=== PATIENT | female | born 1950 | race African-American/Black ===

== ENCOUNTER 2016-08-25 12:19 | Inpatient (IN) ==
[2016-08-25 15:50] LABS: Basophils % 0.5 % (0.0-0.8); Eosinophils # 0.1 10*3/uL (0.0-0.87); Eosinophils % 1.4 % (0.00-10.9); Hematocrit 45.7 VOL% (35.7-47.0); Hemoglobin 15.1 GM/DL (12.0-16.0); Immature Granulocytes % 0.2 %; Immature Granulocytes Absolute 0.02 #; Lymphocytes # 2.9 10*3/uL (1.4-4.0); Lymphocytes % 34.4 % (21.3-54.2); Mean Corpuscular Hemoglobin 32 PG (27-34); Mean Corpuscular Volume 96.8 FL (87-102); Mean Platelet Volume 10.2 FL (9.6-12.0); Monocytes # 1.2 10*3/uL (0.11-0.8); Monocytes % 14.5 % (1.7-12.7); Neutrophils # 4.1 10*3/uL (1.4-7.4); Platelet Count 188 T/CUMM (130-400); Red Blood Count 4.72 MC/CUMM (3.8-5.5); Red Cell Distribution Width 14.2 % (9.3-17.3); White Blood Count 8.3 T/CUMM (4-12)
[2016-08-25 16:01] LABS: INR 1.1; PT Patient Result 12.2 SECS
[2016-08-25 16:13] LABS: Calcium 9.1 MG/DL (8.5-10.1); Magnesium 2.3 MG/DL (1.8-2.4); Osmolality,Calculated 300.1 MOS/KG (273-304); Potassium 4.3 MMOL/L (3.5-5.1)
--- NOTE | 2016-08-25 16:16 | Emergency Department Note ---
Baldemar Cooper Brittany, am scribing for, and in the presence of, Lenard Lopez M.D. 15:33. John Cooper Howard T, M.D., personally performed the services described in this documentation, ascribed by Irma Mcdermott in my presence, and it is both accurate and complete [id number] . Arrival - Arrival Chief Complaint: Non-Specific Stated Complaint: dr.denison carvajal pt to come through er,declot tissue ED Nursing Triage Note: PT SENT FOR EVALUATION OF AV FISTULA IN RIGHT ARM. PT WAS AT DIALYSIS THIS MORNING, WHEN SITE WAS ACCESSED IT WAS CLOTTED- PT UNABLE TO HAVE HD. Mode of Arrival: Ambulatory Limitations: No Limitations Source: Patient Time Seen by Provider: 08/25/16 15:17 - History of Present Illness HPI Narrative: This is a 66 y/o black female,who presents to the ED for further evaluation of clotted AV fistula to the right arm. She states this started this morning. She states she was scheduled to have the HD but when her site was accessed staff noticed it was clotted and was unable to follow through. Pt reports she has a slight WHITLEY. Pt has no other complaints/pain in the ED at this time. Pt has a PMHx of HTN, IDDM, RA, myasthenia gravis, renal failure, renal problems, dialysis MWF, and GERD. Pt has a AV fistula to the right arm, eye surgery, C- section and tubal ligation. Pt has a family medical Hx of cancer, diabetes, heart disease, and HTN. PT denies a social Hx. 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) Consistency: constant Severity: mild, moderate Allergies/Adverse Reactions: Allergies Allergy/AdvReac Type Severity Reaction Status Date / Time No Known Allergies Allergy Verified 08/25/16 12:35 Home Medications: Home Medications Medication Instructions Recorded Confirmed Type Calcium Acetate 667 mg PO TID W/MEALS 07/14/14 06/22/16 History Insulin NPH Hum/Reg Insulin Hm 15 unit SQ DAILY W/SUPPER 07/14/14 06/22/16 History [Novolin 70-30 100 Unit/ml Vial] Insulin NPH Hum/Reg Insulin Hm 30 unit SQ DAILY W/BREAKFAST 07/14/14 06/22/16 History [Novolin 70-30 100 Unit/ml Vial] Calcitriol [Rocaltrol] 0.5 mcg PO DAILY #30 capsule 07/23/14 06/22/16 Rx Calcium (Carbonate) [Oscal 500] 2,000 mg PO QID #240 tablet 07/23/14 Rx Doxercalciferol Inj [Hectorol Inj] 4 mcg IV WITH DIALYSIS PRN #0 vial 07/23/14 06/22/16 Rx Epoetin Taz [Epogen] 4,400 unit IV WITH DIALYSIS PRN #0 07/23/14 06/22/16 Rx vial Review of System - Review of System 12 point system: reviewed and no additional remarkable complaints except as stated - Review of System Musculoskeletal: Present: other (Clotted AV fistula to the right arm) Neurological: Present: headache (Slight WHITLEY) Medical,Surgical,& Family Hx - Medical History Cardio: History of: Hypertension (DIALYSIS) Neurology: No history of: Seizures HEENT: History of: Eye Problem (LASER LEFT EYE), Glaucoma (RIGHT EYE) Endocrine: History of: Diabetes Mellitus (IDDM), Endocrine Problems (ELEVATED CALCIUM) Rheumatology: History of;: Myasthenia Gravis (30 YEARS AGO NO MEDS NO DR), Rheumatoid Arthritis Renal: History of: Dialysis (M,W,F), Renal Failure, Renal Problems (AV FISTULA L AND R ARMS (FOREARMS)) Gastrointestinal: History of: GERD Musculoskeletal: History of: Musculoskeletal Problems - Surgical History Cardiac Surgeries: Sugical HX of: Vascular Access Devices (AV FISTULA L AND RIGHT ARM) HEENT Surgeries: Surgical HX of: Eye Surgery (LASER LEFT EYE) Patient denies: Thyroid Surgery Reproductive Surgeries: Surgical HX of;: Section (X1), Tubal Ligation - Family History Family History: Reports;: Family Cancer (PARENTS), Family Diabetes (MOM 3 SISTERS 2 BROTHERS), Family Heart Disease (BROTHER), Family Hypertension (2 SISTERS 1 BROTHER) Denies;: Family Psychiatric Problems, Family Stroke - Social History Smoking Status: Never smoker Frequency of Alcohol Use: None Type of Drug Use: None Exam Vital Signs: Vital Signs Temperature 96.9 F L 08/25/16 12:30 Pulse Rate 72 08/25/16 12:30 Respiratory Rate 16 08/25/16 12:30 Blood Pressure 178/93 08/25/16 12:30 O2 Sat by Pulse Oximetry 96 05/12/17 12:30 - General General appearance: alert, in no apparent distress - Head Head exam: Present: atraumatic, normocephalic, normal inspection - Eye Eye exam: Present: normal appearance, PERRL, EOMI. Absent: nystagmus, miosis, mydriasis - ENT ENT exam: Present: normal exam, normal oropharynx, mucous membranes moist, TM's normal bilaterally, normal external ear exam - Neck Neck exam: Present: normal inspection, full ROM, trachea midline. Absent: tenderness, meningismus, lymphadenopathy, thyromegaly - Chest Chest inspection: Present: normal inspection, symmetric chest wall rise. Absent : tenderness, rash, abscess - Respiratory Respiratory exam: Present: normal lung sounds bilaterally. Absent: rales, respiratory distress, rhonchi, stridor, wheezes - Cardiovascular Cardiovascular exam: Present: regular rate, normal rhythm, normal heart sounds. Absent: murmur, rubs, gallop, clicks, JVD - Abdominal Exam Abdominal exam: Present: soft, normal bowel sounds. Absent: distention, tenderness, guarding, rebound, rigidity - Rectal Exam Rectal exam: Present: deferred - Extremities Exam Extremities exam: Present: normal capillary refill, other (Graft scars to the arms bialterally these do not appear to be infected). Absent: tenderness, joint swelling, calf tenderness - Back Exam Back exam: Present: normal inspection, full ROM. Absent: tenderness, muscle spasm, rashes - Neurological Exam Neurological exam: Present: alert, oriented X3, CN II-XII intact. Absent: motor sensory deficit - Psychiatric Psychiatric exam: Present: normal affect, normal mood. Absent: depressed, agitated, anxious, flat affect, manic - Skin Skin exam: Present: warm, dry, intact, normal color. Absent: rash, cyanosis, diaphoresis, erythema, pallor, mottled Course Course Narrative: Medical decision making: History and exam is consistent with clotted AV fistula and Dr. Pino general surgeon control manager evaluated the patient will take her to the OR. Results - Labs CBC & BMP: 08/25/16 15:19 08/25/16 15:19 Lab Results: I have reviewed the patients labs Labs: INR 1.1 Disposition Clinical Impression: End stage renal disease, AV fistula thrombosis, Hypertension Case discussed with: patient Disposition: Still a Patient Condition: Stable Time of Disposition: 16:15
[2016-08-25] MEDS ORDERED: ceFAZolin 2,000 MG in PREMIX 1 EACH IV ONE (16:49)
--- NOTE | 2016-08-25 16:52 | General Surg History&Physical ---
Assessment and Plan (1) AV fistula thrombosis Status: Acute Assessment and plan: Impression: Right arm AV fistula thrombosis Plan: I do not think further operative attempts to declot would be successful without further angioplasty or possibly stenting of the axillary vein stenosis as this is most likely the cause of rethrombosis. We will plan to place hemodialysis catheters today. Admit have her dialyze over the weekend and see if we can get interventional radiology to address the stenosis on Sunday if possible. I discussed this with the patient and she agrees with the plan. We discussed the procedure habits performed and the risks. Risks of bleeding, infection, damage to surrounding structures, need further surgery were all discussed in detail and she would like to proceed. Current Visit: Yes History of Present Illness Chief complaint: Clotted dialysis access History of present illness: Ms. Stallworth is a 66 year old female with multiple previous dialysis access surgeries presents with clotted access in her right upper extremity. She was able to dialyze on Sunday but today they were unable to obtain access. She underwent previous attempted thrombectomy by Dr. 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 She has no complaints. She has no shortness of breath or chest pain. She has had no fever or any sign of infection. Home Medications Medication Instructions Recorded Confirmed Type Calcium Acetate 667 mg PO TID W/MEALS 07/14/14 06/22/16 History Insulin NPH Hum/Reg Insulin Hm 15 unit SQ DAILY W/SUPPER 07/14/14 06/22/16 History [Novolin 70-30 100 Unit/ml Vial] Insulin NPH Hum/Reg Insulin Hm 30 unit SQ DAILY W/BREAKFAST 07/14/14 06/22/16 History [Novolin 70-30 100 Unit/ml Vial] Calcitriol [Rocaltrol] 0.5 mcg PO DAILY #30 capsule 07/23/14 06/22/16 Rx Calcium (Carbonate) [Oscal 500] 2,000 mg PO QID #240 tablet 07/23/14 Rx Doxercalciferol Inj [Hectorol Inj] 4 mcg IV WITH DIALYSIS PRN #0 vial 07/23/14 06/22/16 Rx Epoetin Taz [Epogen] 4,400 unit IV WITH DIALYSIS PRN #0 07/23/14 06/22/16 Rx vial Allergies Allergy/AdvReac Type Severity Reaction Status Date / Time No Known Allergies Allergy Verified 08/25/16 12:35 Medical,Surgical,& Family Hx - Medical History Cardio: History of: Hypertension (DIALYSIS) Neurology: No history of: Seizures HEENT: History of: Eye Problem (LASER LEFT EYE), Glaucoma (RIGHT EYE) Endocrine: History of: Diabetes Mellitus (IDDM), Endocrine Problems (ELEVATED CALCIUM) Rheumatology: History of;: Myasthenia Gravis (30 YEARS AGO NO MEDS NO ), Rheumatoid Arthritis Renal: History of: Dialysis (M,W,F), Renal Failure, Renal Problems (AV FISTULA L AND R ARMS (FOREARMS)) Gastrointestinal: History of: GERD Musculoskeletal: History of: Musculoskeletal Problems - Surgical History Cardiac Surgeries: Sugical HX of: Vascular Access Devices (AV FISTULA L AND RIGHT ARM) HEENT Surgeries: Surgical HX of: Eye Surgery (LASER LEFT EYE) Patient denies: Thyroid Surgery Reproductive Surgeries: Surgical HX of;: Section (X1), Tubal Ligation - Family History Family History: Reports;: Family Cancer (PARENTS), Family Diabetes (MOM 3 SISTERS 2 BROTHERS), Family Heart Disease (BROTHER), Family Hypertension (2 SISTERS 1 BROTHER) Denies;: Family Psychiatric Problems, Family Stroke - Social History Smoking Status: Never smoker Frequency of Alcohol Use: None Type of Drug Use: None Exam - Constitutional Vitals: Period Temp Pulse Resp BP Sys/Eisenberg Pulse Ox Last 24 Hr 96.9 F 72 16 178/93 96 General appearance: no acute distress - Head Head exam: Present: normocephalic - Neck Neck exam: Present: normal inspection - Respiratory Respiratory exam: Present: clear to auscultation bilaterally - Cardiovascular Cardiovascular exam: Present: RRR - GI/Abdominal GI/Abdominal exam: Present: soft - Extremities Exam Extremities exam: Present: other (Right upper extremity AV fistula with no thrill. Multiple healed incisions in bilateral upper extremities) - Back Exam Back exam: Present: normal inspection - Neurological Exam Neurological exam: Present: alert, oriented X3 Speech: Present: normal - Skin Skin exam: Present: normal color 12 point system: reviewed and no additional remarkable complaints except as stated Results - Labs CBC & BMP: 08/25/16 15:19 08/25/16 15:19 Lab Results: I have reviewed the past 24 hour labs
[2016-08-25] MEDS ORDERED: GLUCAGON 1 MG VIAL IM PRN (16:55)
[2016-08-25] MEDS ORDERED: ONDANSETRON 4 MG/2 ML VIAL IV PRN (16:55)
[2016-08-25] MEDS ORDERED: ACETAMINOPHEN 325 MG TABLET PO PRN (16:55)
[2016-08-25] MEDS ORDERED: DEXTROSE 50% 25 GM/50 ML VIAL IV PRN (16:55)
[2016-08-25] MEDS ORDERED: METOCLOPRAMIDE 10 MG/2 ML VIAL IV STA (17:09)
[2016-08-25] MEDS ORDERED: METOCLOPRAMIDE 10 MG/2 ML VIAL ONE (17:11)
[2016-08-25] MEDS ORDERED: HEPARIN 5,000 UNIT/1 ML VIAL ONE (17:21)
[2016-08-25] MEDS ORDERED: BUPIVACAINE MPF 0.25% /EPI 30 ML VIAL ONE (17:21)
[2016-08-25] MEDS ORDERED: LIDOCAINE 1%/EPI INJ 20 ML VIAL ONE (17:21)
[2016-08-25] MEDS ORDERED: PROPOFOL 200 MG/20 ML VIAL IV ONE (18:04)
--- NOTE | 2016-08-25 18:48 | Operative Note ---
Date of procedure: 08/25/16 Pre-op diagnosis: Clotted dialysis access, end-stage renal disease Post-op diagnosis: same Procedure: Procedure performed: Placement of left internal jugular tunneled hemodialysis catheter Procedure in detail: After informed consent was obtained, patient was taken operating suite and laid supine on the operating table. After monitored anesthesia was initiated bilateral neck and chest were prepped and draped in usual sterile fashion. After procedural pause ultrasound brought over through a sterile sleeve covering ultrasound the left neck revealed a patent and compressible left internal jugular vein. Patient placed in Trendelenburg position. A left internal jugular vein was then accessed using an 18-gauge Seldinger needle under ultrasound guidance on the first attempt. There is return of nonpulsatile dark red blood. Guidewire inserted without resistance. Guidewire was seen coursing through the visualized portion of the internal jugular vein on ultrasound. Fluoroscopy demonstrated a guidewire be coursing through the appropriate position. Next a 19 cm cuffed hemodialysis catheter was tunneled from a separate incision left chest wall up to base left neck. Dilator and sheath were placed over the guidewire using Seldinger technique under fluoroscopic guidance. Dilator and guidewire were removed leaving the sheath in place. The catheter inserted through the sheath and sheath peeled away leaving the catheter tip in Spear vena cava. Catheter withdrew and flushed easily and was locked with heparinized saline. It was secured in place with 2-0 nylon. Incision closed with 2-0 nylon. Sterile dressings applied. The patient was taken recovery room in stable condition. All lap and needle counts correct at the end of the case. Anesthesia: MAC, local Surgeon / Physician: Nate Joaquin Estimated blood loss: other (Less than 10 cc) Specimens: none sent Condition: stable Disposition: PACU Results - Labs CBC & BMP: 08/25/16 15:19 08/25/16 15:19 Discharge Plan - Discharge Medications No Action Calcium Acetate 667 mg PO TID W/MEALS Insulin NPH Hum/Reg Insulin Hm [Novolin 70-30 100 Unit/ml Vial] 30 unit SQ DAILY W/BREAKFAST Insulin NPH Hum/Reg Insulin Hm [Novolin 70-30 100 Unit/ml Vial] 15 unit SQ DAILY W/SUPPER Doxercalciferol Inj [Hectorol Inj] 4 mcg IV WITH DIALYSIS PRN #0 vial PRN Reason: DIALYSIS Calcium (Carbonate) [Oscal 500] 2,000 mg PO QID #240 tablet Calcitriol [Rocaltrol] 0.5 mcg PO DAILY #30 capsule Epoetin Taz [Epogen] 4,400 unit IV WITH DIALYSIS PRN #0 vial PRN Reason: DIALYSIS - Follow Up or Referral - Forms/Instructions
--- NOTE | 2016-08-25 18:54 | Anesthesia Post-Op ---
Anesthesia Post OP - Post Ansesthetic Evaluation Patient seen in post op: Yes Resp: within normal limits CV: within normal limits Mental: within normal limits Temp: within normal limits [id number]: within normal limits Nausea and Vomiting: within normal limits Pain: within normal limits
[2016-08-25] MEDS ORDERED: MIDAZOLAM 2 MG/2 ML VIAL ONE (18:57)
--- NOTE | 2016-08-25 19:19 | XRay Report ---
XR chest 1V portable Indication: Catheter placement Comparison: 17 January 2011 Findings: The heart and mediastinum are stable in size and configuration. Left internal jugular catheter has been placed with tip overlying superior vena cava. The pulmonary vascularity is prominent. No lung infiltrates, effusions, pneumothorax or other abnormality is demonstrated. Impression: Right internal jugular catheter placement with tip overlying superior vena cava. PROCEDURE INTERPRETED AT [facility] DEPARTMENT OF RADIOLOGY Final Report Signed by: Dr. Keith Brock
--- NOTE | 2016-08-25 20:16 | Hospitalist Consult Note ---
Assessment and Plan (1) AV fistula thrombosis Status: Acute Assessment and plan: tunnel cath placed Current Visit: Yes (2) End stage renal disease Status: Acute Assessment and plan: consult Dr. Daugherty for dialysis Current Visit: Yes (3) Diabetes mellitus Status: Acute Assessment and plan: restarted insulin, ISC Current Visit: No (4) Secondary hyperparathyroidism Status: Acute Assessment and plan: cont hectoral Current Visit: No History of Present Illness - Data of Consult Consult date: 08/25/16 Requesting Physician: Nate Joaquin - Consult Narrative Reason for consult: clot in graft History of present illness: Ms. Stallworth is a 66 year old female end-stage renal disease and insulin- dependent diabetes who was at dialysis today but was unable to finish her dialysis due to a clotted graft. She has had multiple clots in her graft before. Dr. Joaquin admitted her and put in tunnel cath. CC: Nate Joaquin MD - Home Medications and Allergies Home Medications: Home Medications Medication Instructions Recorded Confirmed Type Calcium Acetate 667 mg PO TID W/MEALS 07/14/14 06/22/16 History Insulin NPH Hum/Reg Insulin Hm 15 unit SQ DAILY W/SUPPER 07/14/14 06/22/16 History [Novolin 70-30 100 Unit/ml Vial] Insulin NPH Hum/Reg Insulin Hm 30 unit SQ DAILY W/BREAKFAST 07/14/14 06/22/16 History [Novolin 70-30 100 Unit/ml Vial] Calcitriol [Rocaltrol] 0.5 mcg PO DAILY #30 capsule 07/23/14 06/22/16 Rx Calcium (Carbonate) [Oscal 500] 2,000 mg PO QID #240 tablet 07/23/14 Rx Doxercalciferol Inj [Hectorol Inj] 4 mcg IV WITH DIALYSIS PRN #0 vial 07/23/14 06/22/16 Rx Epoetin Taz [Epogen] 4,400 unit IV WITH DIALYSIS PRN #0 07/23/14 06/22/16 Rx vial Allergies/Adverse Reactions: Allergies Allergy/AdvReac Type Severity Reaction Status Date / Time No Known Allergies Allergy Verified 08/25/16 12:35 Medical,Surgical,& Family Hx - Medical History Cardio: History of: Hypertension (DIALYSIS) Neurology: No history of: Seizures HEENT: History of: Eye Problem (LASER LEFT EYE), Glaucoma (RIGHT EYE) Endocrine: History of: Diabetes Mellitus (IDDM), Endocrine Problems (ELEVATED CALCIUM) Rheumatology: History of;: Myasthenia Gravis (30 YEARS AGO NO MEDS NO ), Rheumatoid Arthritis Renal: History of: Dialysis (M,W,F), Renal Failure, Renal Problems (AV FISTULA L AND R ARMS (FOREARMS)) Gastrointestinal: History of: GERD Musculoskeletal: History of: Musculoskeletal Problems - Surgical History Cardiac Surgeries: Sugical HX of: Vascular Access Devices (AV FISTULA L AND RIGHT ARM) HEENT Surgeries: Surgical HX of: Eye Surgery (LASER LEFT EYE) Patient denies: Thyroid Surgery Reproductive Surgeries: Surgical HX of;: Section (X1), Tubal Ligation - Family History Family History: Reports;: Family Cancer (PARENTS), Family Diabetes (MOM 3 SISTERS 2 BROTHERS), Family Heart Disease (BROTHER), Family Hypertension (2 SISTERS 1 BROTHER) Denies;: Family Psychiatric Problems, Family Stroke - Social History Smoking Status: Never smoker Frequency of Alcohol Use: None Type of Drug Use: None Marital Status: Single Lives With:: Alone Functional capacity: independent ambulation - Constitutional Constitutional: Absent: fever(s), headache(s) - EENT Eyes: Absent: blurry vision, diplopia Ears: Absent: decreased hearing, ear discharge Nose, mouth and throat: Absent: headache(s), sore throat - Cardiovascular Cardiovascular: Absent: chest pain at rest, dyspnea - Respiratory Respiratory: Absent: cough, dyspnea - Gastrointestinal Gastrointestinal: Present: constipation, diarrhea. Absent: nausea, vomiting - Genitourinary Genitourinary: Absent: difficulty urinating, dysuria - Neurological Neurological: Absent: headache(s), syncope - Psychiatric Psychiatric: Absent: anxiety, depression - Endocrine Endocrine: Absent: cold intolerance, fatigue - Hematologic/Lymphatic Hematologic/Lymphatic: Absent: easy bleeding, easy bruising Exam - Constitutional Vitals: Period Temp Pulse Resp BP Sys/Eisenberg Pulse Ox Last 24 Hr 97.3 F-97.6 F 71-78 16-25 138-168/67-79 94-100 General appearance: normal weight, no acute distress - Head Head exam: Present: normal inspection, normocephalic - Eye Eye exam: Present: EOMI. Absent: scleral icterus Pupils: Present: NGUYỄN, normal accommodation - ENT ENT exam: Present: normal exam, normal external ear exam - Neck Neck exam: Absent: lymphadenopathy, thyromegaly - Respiratory Respiratory exam: Present: clear to auscultation bilaterally. Absent: rhonchi, wheezes - Cardiovascular Cardiovascular exam: Present: regular rate and rhythm. Absent: systolic murmur - GI/Abdominal GI/Abdominal exam: Present: normal bowel sounds, soft. Absent: tenderness - Extremities Exam Extremities exam: Present: normal inspection, normal capillary refill - Neurological Exam Neurological exam: Present: alert, oriented X3, reflexes normal. Absent: motor sensory deficit - Psychiatric Psychiatric exam: Present: normal affect, normal mood - Skin Skin exam: Present: normal color, warm Results - Labs CBC & BMP: 08/25/16 15:19 08/25/16 15:19 Lab Results: I have reviewed the past 24 hour labs Quality Measures - VTE Contraindication to Pharmacological VTE Prophylaxis: Clinical assessment deems Pt at low risk, no prophalaxis needed
[2016-08-25] MEDS ORDERED: DOXERCALCIFEROL 4 MCG/2 ML VIAL IV PRN (20:18)
[2016-08-25] MEDS ORDERED: EPOETIN ALFA 2,000 UNIT/1 ML VIAL IV PRN (20:18)
[2016-08-25] MEDS: INSULIN LISPRO 100 UNIT/ML SUBCUT SCH (22:43)
[2016-08-26] MEDS: INSULIN LISPRO 100 UNIT/ML SUBCUT SCH ×4 (08:24→20:30)
--- NOTE | 2016-08-26 08:30 | Hospitalist Progress Note ---
Hospitalist: Subjective Interval history: Pt had Left IJ placed yesterday and was told she has plans for HD today. No fever. No cp or SOB. No nausea or vomiting. Exam - Constitutional Vitals: Period Temp Pulse Resp BP Sys/Eisenberg Pulse Ox Last 24 Hr 97.3 F-98.1 F 64-78 16-25 103-168/51-79 94-100 Exam: A and O x 3, chronically ill appearing RRR no M CTAB nonlabored Soft, NT, ND, +BS Warm no c/c/e Results - Labs CBC & BMP: 08/25/16 15:19 08/25/16 15:19 - Impressions (1) AV fistula thrombosis Status: Acute Assessment and plan: tunnel cath placed Current Visit: Yes (2) End stage renal disease Status: Acute Assessment and plan: Renal for HD Current Visit: Yes (3) Diabetes mellitus Status: Acute Assessment and plan: Cont insulin, and insulin sliding scale/ accuchecks Current Visit: No (4) Secondary hyperparathyroidism Status: Acute Assessment and plan: cont hectoral Current Visit: No Possible dc later today after HD if ok with all consultants. If not, I will be away several days and one of my associates will follow in my absence. Quality Measures - VTE Contraindication to Pharmacological VTE Prophylaxis: Clinical assessment deems Pt at low risk, no prophalaxis needed
[2016-08-26] MEDS: CALCIUM ACETATE 667 MG CAPSULE PO SCH ×3 (09:14→17:22)
[2016-08-26] MEDS: CALCITRIOL 0.25 MCG CAPSULE PO SCH (09:14)
[2016-08-26] MEDS: PANTOPRAZOLE 40 MG TABLET PO SCH (09:14)
[2016-08-26] MEDS: INSULIN NPH/REGULAR 70/30 100 UNIT/ML SUBCUT SCH ×2 (09:17→16:30)
--- NOTE | 2016-08-26 15:14 | Event Note ---
Status post placement of right IJ catheter. She is admitted for hemodialysis. Nephrology consult. She has clotted access in the right arm. We will see if interventional radiology has any options available on Sunday for this patient.
--- NOTE | 2016-08-26 17:25 | Nephrology Consult Note ---
History of Present Illness Chief complaint: End-stage renal disease History of present illness: Ms. Stallworth is a 66 year old female history of end-stage renal disease due to hypertension and diabetes. She currently dialyzes at the [facility] dialysis unit she presented with a clotted access. At this time she has a new tunnel catheter that was placed on yesterday. Nephrology is been consulted for renal issues. No shortness of breath or chest pain no fevers or chills. Home Medications Medication Instructions Recorded Confirmed Type Calcium Acetate 667 mg PO TID W/MEALS 07/14/14 08/25/16 History Insulin NPH Hum/Reg Insulin Hm 15 unit SQ DAILY W/SUPPER 07/14/14 08/25/16 History [Novolin 70-30 100 Unit/ml Vial] Insulin NPH Hum/Reg Insulin Hm 30 unit SQ DAILY W/BREAKFAST 07/14/14 08/25/16 History [Novolin 70-30 100 Unit/ml Vial] Calcitriol [Rocaltrol] 0.5 mcg PO DAILY #30 capsule 07/23/14 08/25/16 Rx Calcium (Carbonate) [Oscal 500] 2,000 mg PO QID #240 tablet 07/23/14 08/25/16 Rx Doxercalciferol Inj [Hectorol Inj] 4 mcg IV WITH DIALYSIS PRN #0 vial 07/23/14 08/25/16 Rx Epoetin Taz [Epogen] 4,400 unit IV WITH DIALYSIS PRN #0 07/23/14 08/25/16 Rx vial Allergies Allergy/AdvReac Type Severity Reaction Status Date / Time No Known Allergies Allergy Verified 08/25/16 12:35 Medical,Surgical,& Family Hx - Medical History Cardio: History of: Hypertension (DIALYSIS) Neurology: No history of: Seizures HEENT: History of: Eye Problem (LASER LEFT EYE), Glaucoma (RIGHT EYE) Endocrine: History of: Diabetes Mellitus (IDDM), Endocrine Problems (ELEVATED CALCIUM) Rheumatology: History of;: Myasthenia Gravis (30 YEARS AGO NO MEDS NO ), Rheumatoid Arthritis Renal: History of: Dialysis (M,W,F), Renal Failure, Renal Problems (AV FISTULA L AND R ARMS (FOREARMS)) Gastrointestinal: History of: GERD Musculoskeletal: History of: Musculoskeletal Problems - Surgical History Cardiac Surgeries: Sugical HX of: Vascular Access Devices (AV FISTULA L AND RIGHT ARM) HEENT Surgeries: Surgical HX of: Eye Surgery (LASER LEFT EYE) Patient denies: Thyroid Surgery Reproductive Surgeries: Surgical HX of;: Section (X1), Tubal Ligation - Family History Family History: Reports;: Family Cancer (PARENTS), Family Diabetes (MOM 3 SISTERS 2 BROTHERS), Family Heart Disease (BROTHER), Family Hypertension (2 SISTERS 1 BROTHER) Denies;: Family Psychiatric Problems, Family Stroke - Social History Smoking Status: Never smoker Frequency of Alcohol Use: None Type of Drug Use: None Review of Systems Constitutional: no anorexia, no chills Gastrointestinal: no abdominal pain, no bloating, no constipation Genitourinary: no flank pain Exam - Vital Signs Vital signs: Period Temp Pulse Resp BP Sys/Eisenberg Pulse Ox Last 24 Hr 97.3 F-98.3 F 64-78 16-25 103-168/51-86 94-100 - General Appearance General appearance: well-developed Neck: supple Cardiology: regular rate, regular rhythm Gastrointestinal: normoactive bowel sounds, no tenderness Neurologic: alert and oriented x3 Musculoskeletal: no clubbing Psychiatric: mood/affect appropriate Results - Labs CBC & BMP: 08/25/16 15:19 08/25/16 15:19 Assessment and Plan (1) End stage renal disease Status: Chronic Assessment and plan: Continue with hemodialysis with new dialysis catheter. Current Visit: Yes (2) Hypertension Status: Chronic Current Visit: Yes Qualifiers: Hypertension type: essential hypertension Qualified Code(s): I10 - Essential (primary) hypertension (3) Diabetes mellitus Status: Chronic Current Visit: No Qualifiers: Chronic kidney disease stage: on chronic dialysis
--- NOTE | 2016-08-26 17:27 | Dialysis Note ---
Dialysis Note - Dialysis Note The patient is seen on dialysis. She is tolerating the procedure. Blood pressures noted to be 119/75. No other acute changes.
[2016-08-27] MEDS: INSULIN LISPRO 100 UNIT/ML SUBCUT SCH ×4 (08:57→22:40)
[2016-08-27] MEDS: CALCITRIOL 0.25 MCG CAPSULE PO SCH (09:15)
[2016-08-27] MEDS: CALCIUM ACETATE 667 MG CAPSULE PO SCH ×3 (09:15→16:38)
[2016-08-27] MEDS: PANTOPRAZOLE 40 MG TABLET PO SCH (09:16)
[2016-08-27] MEDS: INSULIN NPH/REGULAR 70/30 100 UNIT/ML SUBCUT SCH ×2 (09:16→16:37)
--- NOTE | 2016-08-27 10:08 | Discharge Summary ---
Hospital Course - Hospital Course Hospital Course: The patient was admitted to the hospital due to difficulty with dialysis access. A tunneled catheter was placed and the patient was dialyzed yesterday. I reviewed the plan of care with Dr. Daugherty and he felt the patient was ready for discharge home today. Discharge Plan - Discharge Medications No Action Calcium Acetate 667 mg PO TID W/MEALS Insulin NPH Hum/Reg Insulin Hm [Novolin 70-30 100 Unit/ml Vial] 30 unit SQ DAILY W/BREAKFAST Insulin NPH Hum/Reg Insulin Hm [Novolin 70-30 100 Unit/ml Vial] 15 unit SQ DAILY W/SUPPER Doxercalciferol Inj [Hectorol Inj] 4 mcg IV WITH DIALYSIS PRN #0 vial PRN Reason: DIALYSIS Calcium (Carbonate) [Oscal 500] 2,000 mg PO QID #240 tablet Calcitriol [Rocaltrol] 0.5 mcg PO DAILY #30 capsule Epoetin Taz [Epogen] 4,400 unit IV WITH DIALYSIS PRN #0 vial PRN Reason: DIALYSIS - Follow Up or Referral - Forms/Instructions Exam - Constitutional Vitals: Period Temp Pulse Resp BP Sys/Eisenberg Pulse Ox Last 24 Hr 97.9 F-98.3 F 67-80 18-20 117-148/59-90 95-96 Discharge Results Labs on day of discharge: Labs from last 24 hours 08/27/16 08/26/16 08/26/16 08:49 20:28 16:25 POC Glucose 159 H 127 H 82 08/26/16 12:19 POC Glucose 114 H DS: Provider Date of admission: 08/25/16 16:55 Primary care physician: Teddy Paredes Attending physician on admission: Nate Joaquin MD Consults: 08/25/16 17:00 Consult to Physician [CONS] Routine Comment: insulin Consulting Provider: Idris Eubanks When should Consulting Provider be notified: Now 08/25/16 17:01 Consult to Physician [CONS] Routine Comment: ESRD Consulting Provider: Ivan Daugherty Jr. Person Notified: Dr. Daugherty Date Notified: 08/26/16 Time Notified: 15:00 08/25/16 21:47 Consult to Pastoral Services [CONS] Routine Comment: Pastoral Screen: Request Fluorescent Lamp Replacer Visit Discharging clinician: Blake Patterson MD
--- NOTE | 2016-08-27 10:10 | Hospitalist Progress Note ---
Assessment and Plan (1) AV fistula thrombosis Status: Acute Assessment and plan: The patient will have further intervention with radiology tomorrow per Dr. Pino's plan. We will continue present care. Current Visit: Yes (2) End stage renal disease Status: Chronic Current Visit: Yes (3) Hypertension Status: Chronic Current Visit: Yes Qualifiers: Hypertension type: essential hypertension Qualified Code(s): I10 - Essential (primary) hypertension Hospitalist: Subjective Interval history: Mrs. Stallworth had dialysis yesterday evening. Dr. Pino anticipates further interventional radiology tomorrow to try to reopen the patient's permanent dialysis access. Exam - Constitutional Vitals: Period Temp Pulse Resp BP Sys/Eisenberg Pulse Ox Last 24 Hr 97.9 F-98.3 F 67-80 18-20 117-148/59-90 95-96 Exam: Chest clear, abdomen soft, heart has regular rate and rhythm. Results - Labs CBC & BMP: 08/25/16 15:19 08/25/16 15:19 Lab Results: I have reviewed the past 24 hour labs Quality Measures - VTE Contraindication to Pharmacological VTE Prophylaxis: Clinical assessment deems Pt at low risk, no prophalaxis needed
--- NOTE | 2016-08-27 12:09 | Event Note ---
Catheter worked well yesterday but was noted to be somewhat positional. She is doing well with no complaints today. Plan to consult interventional radiology in the morning for fistulogram and declot. Afterward she will be ready for discharge
--- NOTE | 2016-08-27 12:35 | Nephrology Progress Note ---
Nephrology - PN: Subj Interval history: Patient is resting comfortably no acute changes. Tolerated dialysis yesterday. No shortness of breath or chest pain. Plan to have intervention for a x-ray declot of graft on tomorrow. Exam (PN)-Nephrology - Vital Signs Vital signs: Period Temp Pulse Resp BP Sys/Eisenberg Pulse Ox Last 24 Hr 97.9 F-98.5 F 67-80 18-20 117-148/59-90 95-97 - General Appearance General appearance: well-developed, well-nourished EENT: ATNC Neck: supple Respiratory: clear Cardiology: no edema, regular rate, regular rhythm Gastrointestinal: normoactive bowel sounds, no tenderness Neurologic: alert and oriented x3 Musculoskeletal: no clubbing Psychiatric: mood/affect appropriate - Lab 08/25/16 15:19 08/25/16 15:19 Most recent lab results Calcium 9.1 MG/DL (8.5-10.1) 08/25/16 15:19 Magnesium 2.3 MG/DL (1.8-2.4) 08/25/16 15:19 Assessment and Plan (1) End stage renal disease Status: Chronic Assessment and plan: Continue with hemodialysis with new dialysis catheter. Current Visit: Yes (2) Hypertension Status: Chronic Current Visit: Yes Qualifiers: Hypertension type: essential hypertension Qualified Code(s): I10 - Essential (primary) hypertension (3) Diabetes mellitus Status: Chronic Current Visit: No Qualifiers: Chronic kidney disease stage: on chronic dialysis
--- NOTE | 2016-08-28 06:46 | Nephrology Progress Note ---
Nephrology - PN: Subj Interval history: Patient is sitting up in chair resting comfortably no acute changes. Plan for a interventional declotting of access today. Exam (PN)-Nephrology - Vital Signs Vital signs: Period Temp Pulse Resp BP Sys/Eisenberg Pulse Ox Last 24 Hr 97.9 F-99.0 F 67-76 18-20 108-156/58-91 96-99 - General Appearance General appearance: well-developed, well-nourished EENT: ATNC Neck: supple Respiratory: clear Cardiology: regular rate, regular rhythm Gastrointestinal: normoactive bowel sounds, no tenderness Neurologic: alert and oriented x3 Musculoskeletal: no clubbing Psychiatric: mood/affect appropriate - Lab 08/25/16 15:19 08/25/16 15:19 Most recent lab results Calcium 9.1 MG/DL (8.5-10.1) 08/25/16 15:19 Magnesium 2.3 MG/DL (1.8-2.4) 08/25/16 15:19 Assessment and Plan (1) End stage renal disease Status: Chronic Assessment and plan: Continue with hemodialysis with new dialysis catheter. Current Visit: Yes (2) Hypertension Status: Chronic Current Visit: Yes Qualifiers: Hypertension type: essential hypertension Qualified Code(s): I10 - Essential (primary) hypertension (3) Diabetes mellitus Status: Chronic Current Visit: No Qualifiers: Chronic kidney disease stage: on chronic dialysis
[2016-08-28] MEDS: INSULIN LISPRO 100 UNIT/ML SUBCUT SCH ×3 (07:58→18:00)
[2016-08-28] MEDS ORDERED: ALTEPLASE 2 MG VIAL IV PRN (08:47)
[2016-08-28] MEDS ORDERED: HEPARIN 10,000 UNIT/10 ML VIAL IV PRN (08:49)
[2016-08-28] MEDS: CALCITRIOL 0.25 MCG CAPSULE PO SCH (09:11)
[2016-08-28] MEDS: PANTOPRAZOLE 40 MG TABLET PO SCH (09:11)
[2016-08-28] MEDS: INSULIN NPH/REGULAR 70/30 100 UNIT/ML SUBCUT SCH ×2 (09:11→18:00)
[2016-08-28] MEDS: CALCIUM ACETATE 667 MG CAPSULE PO SCH ×2 (09:11→12:06)
--- NOTE | 2016-08-28 12:40 | Dialysis Note ---
Dialysis Note - Dialysis Note Ms. Stallworth is seen during dialysis. She had poor flow from the dialysis catheter and Activase was instilled. Catheter still flowed poorly following that. Apparently she is to have declotting of her primary AV fistula in the right arm. Hopefully that will resolve the dialysis access issues.
[2016-08-28] MEDS ORDERED: HEPARIN 1,000 UNIT/1 ML VIAL ONE (14:29)
[2016-08-28] MEDS ORDERED: ALTEPLASE 2 MG VIAL ONE (14:45)
--- NOTE | 2016-08-28 15:15 | Hospitalist Progress Note ---
Assessment and Plan (1) AV fistula thrombosis Status: Acute Assessment and plan: The patient will have further intervention with radiology today per Dr. Pino 's plan. We will continue present care. I coordinated care with Dr. Naik today. Current Visit: Yes (2) End stage renal disease Status: Chronic Current Visit: Yes (3) Hypertension Status: Chronic Current Visit: Yes Qualifiers: Hypertension type: essential hypertension Qualified Code(s): I10 - Essential (primary) hypertension Hospitalist: Subjective Interval history: The patient had dialysis through her tunneled catheter today. It was less than optimal due to poor blood flow. The patient is having a attempt at declotting her permanent graft today. Exam - Constitutional Vitals: Period Temp Pulse Resp BP Sys/Eisenberg Pulse Ox Last 24 Hr 97.1 F-98.9 F 67-73 18-20 108-154/54-92 95-99 Exam: Chest clear, abdomen soft, heart has regular rate and rhythm. Results - Labs CBC & BMP: 08/25/16 15:19 08/25/16 15:19 Lab Results: I have reviewed the past 24 hour labs Quality Measures - VTE Contraindication to Pharmacological VTE Prophylaxis: Clinical assessment deems Pt at low risk, no prophalaxis needed
--- NOTE | 2016-08-28 16:01 | Post Interventional Procedure ---
Pre-op diagnosis: ESRD, clotted RUE AVF, axillary vein stenosis Post-op diagnosis: same Procedure: Mech and pharmaceutical thrombectomy RUE AFV, fistula is macerated with breakdown of the inflow half treated with 8x80mm and 8x60mm Fluency plus stent grafts, axillary vein stenosis BAIT PACKER to 6mm, restenosed to 4mm but patent, not stented due to location and patency Contrast: Omni 350, 65 cc Flouroscopy: 13.2 min Radiologist: Heriberto Shirley Anesthesia: local Specimens: none sent Estimated blood loss: minimal Complications: none Condition: stable Description/Findings: Reconstructed inflow portion of AVF with Fluency plus stent-grafts x2 as described in radiology report, with axillary vein BAIT PACKER. Not optimistic this will remain patent for more than a few weeks at best. Recommend planning new access. Assessment and Plan - Time spent with patient Time spent with patient: Greater than 30 minutes
--- NOTE | 2016-08-28 16:13 | Discharge Summary ---
Hospital Course - Hospital Course Hospital Course: Pt admitted with thrombosis of right AV fistula - failed previous attempts for clot removal and stented by IR. IJ placed for access and used for HD. Pt also underwent stenting of AV fistula with Dr. Shirley who expressed concern will not remain patent for an extended period and recommends obtaining new access. Hospitalist and nephrology consultations appreciated. Pt was discharged home in good condition to f/u dialysis as scheduled and with Dr. Shipman for access option discussion. Diagnosis - Discharge Diagnosis (1) AV fistula thrombosis Status: Acute (2) End stage renal disease Status: Chronic Specialty Discharge - Follow Up or Referrals Follow up with: Praveen Shipman III., MD [Physician] - (1-2 wks re: establish new access.) Discharge Plan - Discharge Data Disposition: Disch To Home/Self Care Condition at Discharge: Stable Discharge Diet: other (Renal diet) Activity: resume usual activities as tolerated Hygiene: may shower, keep area(s) dry Contact your physician if you experience:: fever over 101, Difficulty voiding, Redness or swelling, Nausea/Vomiting, Shortness of breath, Bleeding, pain uncontrolled by pain medications Wound / Dressing Care Instructions: Keep dressing in place until dialysis. - Discharge Medications New HYDROcodone/ACETAMIN 7.5-325 [[place] 7.5-325] 1 tablet PO Q4H PRN #12 tablet PRN Reason: Pain Moderate To Severe (4-10) Continue Calcium Acetate 667 mg PO TID W/MEALS Insulin NPH Hum/Reg Insulin Hm [NovoLIN 70/30] 30 unit SQ DAILY W/BREAKFAST Insulin NPH Hum/Reg Insulin Hm [NovoLIN 70/30] 15 unit SQ DAILY W/SUPPER Doxercalciferol Inj [Hectorol Inj] 4 mcg IV WITH DIALYSIS PRN #0 vial PRN Reason: DIALYSIS Calcium (Carbonate) [Oscal 500] 2,000 mg PO QID #240 tablet Calcitriol [Rocaltrol] 0.5 mcg PO DAILY #30 capsule Epoetin Taz [Epogen] 4,400 unit IV WITH DIALYSIS PRN #0 vial PRN Reason: DIALYSIS - Follow Up or Referral Follow Up: Praveen Shipman III., MD [Physician] - (1 wk re: establish new access.) - Forms/Instructions Instructions: Non-tunneled Central Lines (DC) Additional Discharge Instructions: Dialysis scheduled per Dr. Naik. If there are difficulties using current access - please notify surgical service (international trade analyst physician or RUDY Andersen) to assess prior to complete discontinuation of therpy. Exam - Constitutional Vitals: Period Temp Pulse Resp BP Sys/Eisenberg Pulse Ox Last 24 Hr 97.1 F-98.7 F 67-73 18-22 108-154/52-92 95-99 Discharge Results Procedures and tests throughout hospitalization: Pending Orders 08/28/16 11:57 IR Dialysis Angiography Routine Labs on day of discharge: Labs from last 24 hours 08/28/16 08/27/16 07:26 21:30 POC Glucose 95 104 DS: Provider Date of admission: 08/25/16 16:55 Primary care physician: Teddy Paredes Attending physician on admission: Nate Joaquin MD Consults: 08/25/16 17:00 Consult to Physician [CONS] Routine Comment: insulin Consulting Provider: Idris Eubanks When should Consulting Provider be notified: Now 08/25/16 17:01 Consult to Physician [CONS] Routine Comment: ESRD Consulting Provider: Ivan Daugherty Jr. Person Notified: Dr. Daugherty Date Notified: 08/26/16 Time Notified: 15:00 08/25/16 21:47 Consult to Pastoral Services [CONS] Routine Comment: Pastoral Screen: Request Social Media Director Visit Discharging clinician: Madeleine Andersen PA-C
[2016-08-28 16:41] VITALS: BP 149/74
--- NOTE | 2016-08-28 16:55 | Interventional Radiology Rpt ---
IR Dialysis declot w Stent, US guide vascular access Indication: End-stage renal disease. Dialysis through right upper arm AV fistula, now occluded. Poorly functioning tunneled left IJ catheters. MECHANICAL AND PHARMACEUTICAL THROMBECTOMY RIGHT UPPER ARM AV FISTULA, AXILLARY VEIN ANGIOPLASTY, STENT GRAFT RECONSTRUCTION OF INFLOW PORTION OF THE FISTULA Description: A formal timeout was performed. Maximum sterile barrier technique was instituted. Fistula is not palpable. Therefore, sonographic evaluation was performed showing thrombosis of the entire fistula right upper arm. The fistula was accessed in antegrade direction towards the axilla using sonographic guidance. Captured sonographic image documents needle position. Needle was exchanged over a wire for a sheath. TPA 4 mg was injected along the length of the fistula using a Tegtmeyer catheter. Tegtmeier catheter was then advanced centrally. Venography was performed beginning the upper chest and tracking towards the access site near the antecubital fossa. This showed recurrent 90% diameter stenosis of the axillary vein, thrombosis of the entire fistula, but no central stenosis. Multiple passes were then made with a territorial device through the outflow portion of the fistula, covering approximately 80% of the length of the fistula from the axillary vein towards the a.c. fossa. The fistula was accessed in a retrograde direction towards the antecubital fossae using sonographic guidance. Captured sonographic image documents position of the micropuncture needle in the fistula. This needle was exchanged over a wire for a sheath. A Tegtmeyer catheter was then advanced across the arterial venous anastomosis, and a angiogram performed. The anastomosis appears stenotic, estimated at 80% diameter narrowing. Tegmen R catheter was removed over wire. The inflow portion of the fistula was angioplastied to 4 mm. [id number], a Demarcus balloon was advanced into the brachial artery, inflated and withdrawn. Multiple passes were made with a Demarcus balloon in an effort to restore antegrade flow in the fistula. Periodically, brief antegrade flow would be reestablished but then near where multiple prior punctures of the fistula had been performed for dialysis access, the flow it abruptly stop where immediate thrombosis would be demonstrated. Additionally, where opacified with contrast, the actual fistula appears macerated and virtually destroyed through the segment. The axillary vein was angioplastied to 6 mm. Post angioplasty venogram was performed showing some residual stenosis of approximately 5 mm but overall, significant improvement in patency of the axillary vein. A third puncture was then made in the AV fistula close to the axilla, directed retrograde towards the antecubital fossa, also using sonographic guidance. Captured sonographic image documents needle position for this puncture site. Wire and catheter were then used to cross the macerated and thrombogenic segment of the fistula. This segment was then primarily stent grafted with a 8 x 80 mm Fluency Plus stent graft followed by an 8 x 60 mm Fluency Plus stent graft deployed in tandem. Stent graft strength with 7 mm balloon. Antegrade flow throughout the entire fistula was restored with no residual thrombus identified. Again documented is mild restenosis of the axillary vein which does not appear flow limiting at this time. Because of the nature of the axillary vein, stent placement at this site is avoided if at all possible. Access at all 3 sites was removed. Hemostasis was achieved with 3-0 Prolene. Patient tolerated the procedure well. Medications: TPA 4 mg, heparin 3000 units. Contrast: Omnipaque 350, 65 cc. Fluoroscopy: 12.3 minutes. Impression: 1. Mechanical and pharmaceutical thrombectomy of AV fistula as described. 2. The inflow portion of the fistula is virtually destroyed from multiple prior punctures and maceration of the actual fistula. It was reconstructed using 2 Fluency Plus stent grafts as detailed above. 3. Axillary vein stenosis, originally 90% at less than 1 mm diameter, angioplastied to 6 mm. Minimal refractory stenosis noted on the final image, estimated at 5 mm diameter. This does not appear flow limiting. PROCEDURE INTERPRETED AT [facility] DEPARTMENT OF RADIOLOGY Final Report Signed by: Heriberto Shirley M.D.
== END 2016-08-28 19:05 | disposition home or self-care (01) | DRG 252 ==
LOC: N.ED 12:19 → N.3E 16:55
PROVIDERS: ADMIT Surgery; ATTEND Surgery

== ENCOUNTER 2021-02-15 09:55 | Inpatient (IN) ==
[2021-02-15] MEDS ORDERED: ONDANSETRON ODT 4 MG TABLET PO STA (10:37)
[2021-02-15] MEDS ORDERED: DOCUSATE SODIUM 100 MG CAPSULE PO PRN (12:10)
[2021-02-15] MEDS ORDERED: DEXTROSE 50% 25 GM/50 ML VIAL IV PRN (12:10)
[2021-02-15] MEDS ORDERED: GLUCAGON 1 MG VIAL IM PRN (12:10)
[2021-02-15] MEDS ORDERED: hydrALAZINE 20 MG/1 ML VIAL IV PRN (12:10)
[2021-02-15] MEDS ORDERED: ACETAMINOPHEN 325 MG TABLET PO PRN (12:10)
[2021-02-15] MEDS ORDERED: MORPHINE 10 MG/1 ML VIAL IM STA (12:51)
[2021-02-15] MEDS ORDERED: ONDANSETRON 4 MG/2 ML VIAL IM STA (12:51)
[2021-02-15] MEDS ORDERED: MORPHINE 2 MG/1 ML SYRINGE IM STA ×2 (12:54→12:58)
[2021-02-15 13:41] LABS: Basophils # 0.1 10*3/uL (0.0-0.2); Basophils % 0.7 % (0.0-0.8); Eosinophils # 0.1 10*3/uL (0.0-0.87); Eosinophils % 1.2 % (0.00-10.9); Hematocrit 28.9 VOL% (35.7-47.0); Hemoglobin 9.4 GM/DL (12.0-16.0); Immature Granulocytes % 0.5 %; Immature Granulocytes Absolute 0.04 #; Lymphocytes # 1.1 10*3/uL (1.4-4.0); Mean Corpuscular HGB Conc 32.5 GM/DL (32-36); Mean Corpuscular Volume 93.2 FL (87-102); Mean Platelet Volume 11.4 FL (9.6-12.0); Monocytes % 14.9 % (1.7-12.7); Neutrophils % 67.7 % (38.7-73.9); Platelet Count 134 T/CUMM (130-400); Red Cell Distribution Width 16.1 % (9.3-17.3); White Blood Count 7.6 T/CUMM (4-12)
[2021-02-15 13:50] LABS: INR 1.1; PT Patient Result 11.7 SECS (10.5-12.0); Partial Thromboplastin Time 24.2 SECS (23.8-32.1)
[2021-02-15 13:53] LABS: Albumin 3.9 G/DL (3.4-5.0); Bilirubin,Total 0.4 MG/DL (0.20-1.00); Calcium 9.9 MG/DL (8.5-10.1); Osmolality,Calculated 293.7 MOS/KG (273-304); Potassium 3.7 MMOL/L (3.5-5.1); Total Protein 7.6 G/DL (6.4-8.2)
[2021-02-15] MEDS: INSULIN LISPRO 100 UNIT/ML SUBCUT SCH ×2 (18:41→22:35)
[2021-02-15] MEDS: INSULIN NPH/REGULAR 70/30 100 UNIT/ML SUBCUT SCH (18:41)
[2021-02-15] MEDS: SUCROFERRIC OXYHYDROXIDE 500 MG PO SCH (18:41)
[2021-02-16] MEDS: INSULIN LISPRO 100 UNIT/ML SUBCUT SCH ×4 (07:15→20:29)
[2021-02-16 07:16] LABS: Basophils # 0.1 10*3/uL (0.0-0.2); Basophils % 0.9 % (0.0-0.8); Eosinophils # 0.2 10*3/uL (0.0-0.87); Eosinophils % 2.8 % (0.00-10.9); Hematocrit 27.8 VOL% (35.7-47.0); Hemoglobin 8.8 GM/DL (12.0-16.0); Immature Granulocytes % 0.6 %; Immature Granulocytes Absolute 0.03 #; Lymphocytes # 1.3 10*3/uL (1.4-4.0); Lymphocytes % 24.7 % (21.3-54.2); Mean Corpuscular HGB Conc 31.7 GM/DL (32-36); Mean Corpuscular Volume 94.6 FL (87-102); Mean Platelet Volume 11.9 FL (9.6-12.0); Monocytes % 14.9 % (1.7-12.7); Neutrophils % 56.1 % (38.7-73.9); Platelet Count 132 T/CUMM (130-400); Red Blood Count 2.94 MC/CUMM (3.8-5.5); Red Cell Distribution Width 16.3 % (9.3-17.3); White Blood Count 5.4 T/CUMM (4-12)
[2021-02-16] MEDS: INSULIN NPH/REGULAR 70/30 100 UNIT/ML SUBCUT SCH ×2 (07:17→16:13)
[2021-02-16 07:40] LABS: Calcium 9.3 MG/DL (8.5-10.1); Osmolality,Calculated 300.4 MOS/KG (273-304); Potassium 4.4 MMOL/L (3.5-5.1)
[2021-02-16] MEDS: amLODIPine 2.5 MG TABLET PO SCH (08:08)
[2021-02-16] MEDS: PANTOPRAZOLE 40 MG TABLET PO SCH (08:08)
[2021-02-16] MEDS: SUCROFERRIC OXYHYDROXIDE 500 MG PO SCH ×3 (08:08→16:14)
[2021-02-16] MEDS: CINACALCET 30 MG TABLET PO SCH (08:08)
[2021-02-16] MEDS ORDERED: APIXABAN 2.5 MG TABLET PO SCH (09:00)
[2021-02-16] MEDS ORDERED: SODIUM CHLORIDE 0.9% 250 ML IV SCH (11:30)
[2021-02-16] MEDS ORDERED: ROCURONIUM 50 MG/5 ML VIAL IV ONE (11:50)
[2021-02-16] MEDS ORDERED: MIDAZOLAM 2 MG/2 ML VIAL ONE (11:50)
[2021-02-16] MEDS ORDERED: LIDOCAINE 2% 5 ML VIAL ONE (11:50)
[2021-02-16] MEDS ORDERED: propofoL 200 MG/20 ML VIAL IV ONE (11:50)
[2021-02-16] MEDS ORDERED: fentaNYL 100 MCG/2 ML VIAL ONE (11:50)
[2021-02-16] MEDS ORDERED: VANCOMYCIN 1,000 MG VIAL ONE (12:13)
[2021-02-16] MEDS ORDERED: ceFAZolin 1,000 MG VIAL ONE (12:14)
[2021-02-16] MEDS ORDERED: SODIUM CHLORIDE 0.9% 100 ML IV ONE (13:03)
[2021-02-16] MEDS ORDERED: BACITRACIN OINT 0.9 GM PACK TOP ONE (13:15)
[2021-02-16] MEDS ORDERED: ONDANSETRON 4 MG/2 ML VIAL ONE (13:25)
[2021-02-16] MEDS ORDERED: TRANEXAMIC ACID 1,000 MG/10 ML VIAL ONE (13:25)
[2021-02-16] MEDS ORDERED: SODIUM CHLORIDE 0.9% 200 ML IV ONE (13:25)
[2021-02-16] MEDS ORDERED: GLYCOPYRROLATE 0.4 MG/2 ML VIAL ONE (13:52)
[2021-02-16] MEDS ORDERED: NEOSTIGMINE 10 MG/10 ML VIAL ONE (13:52)
[2021-02-16] MEDS ORDERED: MAGNESIUM HYDROXIDE SUSP 30 ML UDCUP PO PRN (14:01)
[2021-02-16] MEDS ORDERED: SEVOFLURANE 1 UNIT/15 MINUTE INH ONE (14:24)
[2021-02-16] MEDS: SODIUM CHLORIDE 0.9% 1,000 ML IV SCH (15:57)
[2021-02-16] MEDS ORDERED: VANCOMYCIN INJ 1,000 MG in SODIUM CHLORIDE 0.9% 250 ML IV ONE ×2 (17:33→22:00)
[2021-02-16] MEDS: ONDANSETRON 4 MG/2 ML VIAL IV PRN (18:00)
[2021-02-17] MEDS: SODIUM CHLORIDE 0.9% 1,000 ML IV SCH (05:16)
[2021-02-17 05:28] LABS: Basophils % 0.7 % (0.0-0.8); Eosinophils # 0.1 10*3/uL (0.0-0.87); Eosinophils % 2.4 % (0.00-10.9); Hematocrit 18.4 VOL% (35.7-47.0); Immature Granulocytes % 0.5 %; Immature Granulocytes Absolute 0.03 #; Lymphocytes # 1.1 10*3/uL (1.4-4.0); Lymphocytes % 17.7 % (21.3-54.2); Mean Corpuscular HGB Conc 31.5 GM/DL (32-36); Mean Corpuscular Volume 96.3 FL (87-102); Mean Platelet Volume 11.6 FL (9.6-12.0); Monocytes % 13.2 % (1.7-12.7); Neutrophils % 65.5 % (38.7-73.9); Platelet Count 92 T/CUMM (130-400); Red Blood Count 1.91 MC/CUMM (3.8-5.5); Red Cell Distribution Width 16.6 % (9.3-17.3); White Blood Count 5.9 T/CUMM (4-12)
[2021-02-17 05:29] LABS: Hemoglobin 5.8 GM/DL (12.0-16.0)
[2021-02-17 05:49] LABS: Calcium 7.4 MG/DL (8.5-10.1); Osmolality,Calculated 305.7 MOS/KG (273-304); Potassium 4.1 MMOL/L (3.5-5.1)
[2021-02-17] MEDS ORDERED: SODIUM CHLORIDE 0.9% 1,000 ML IV PRN (07:00)
[2021-02-17] MEDS: INSULIN LISPRO 100 UNIT/ML SUBCUT SCH ×4 (07:24→20:36)
[2021-02-17] MEDS: SUCROFERRIC OXYHYDROXIDE 500 MG PO SCH ×3 (07:25→16:52)
[2021-02-17] MEDS: INSULIN NPH/REGULAR 70/30 100 UNIT/ML SUBCUT SCH ×2 (07:25→16:52)
[2021-02-17 08:30] LABS: Hematocrit 18.2 VOL% (35.7-47.0)
[2021-02-17 08:37] LABS: Hemoglobin 5.6 GM/DL (12.0-16.0)
[2021-02-17] MEDS ORDERED: APIXABAN 2.5 MG TABLET PO SCH (09:00)
[2021-02-17] MEDS: CINACALCET 30 MG TABLET PO SCH (09:02)
[2021-02-17] MEDS: PANTOPRAZOLE 40 MG TABLET PO SCH (09:02)
[2021-02-17] MEDS: amLODIPine 2.5 MG TABLET PO SCH (09:27)
[2021-02-17 12:20] LABS: Hepatitis B Surface Ag Quant < 0.10 Index; Hepatitis B Surface Ag Result Non-Reactive (NonReactive); Hepatitis C Virus Ab Quant 0.21 Index; Hepatitis C Virus Ab Result Non-Reactive (NonReactive)
[2021-02-18 05:54] LABS: Basophils % 0.4 % (0.0-0.8); Eosinophils # 0.1 10*3/uL (0.0-0.87); Eosinophils % 1.9 % (0.00-10.9); Hematocrit 25.3 VOL% (35.7-47.0); Immature Granulocytes % 0.6 %; Immature Granulocytes Absolute 0.04 #; Lymphocytes # 1.1 10*3/uL (1.4-4.0); Lymphocytes % 15.2 % (21.3-54.2); Mean Platelet Volume 11.3 FL (9.6-12.0); Monocytes % 18.3 % (1.7-12.7); Neutrophils % 63.6 % (38.7-73.9); Platelet Count 109 T/CUMM (130-400); Red Cell Distribution Width 16.9 % (9.3-17.3); White Blood Count 6.9 T/CUMM (4-12)
[2021-02-18 05:55] LABS: Hemoglobin 8.1 GM/DL (12.0-16.0); Red Blood Count 2.72 MC/CUMM (3.8-5.5)
[2021-02-18 06:09] LABS: Calcium 7.9 MG/DL (8.5-10.1); Osmolality,Calculated 283.7 MOS/KG (273-304); Potassium 4.3 MMOL/L (3.5-5.1)
[2021-02-18 06:17] LABS: Eosinophils 2 % (0-10); Hypochromasia 1+; Lymphocytes 16 % (20-55); Microcytosis 1+; Platelet Estimate Decreased; Segmented Neutrophils 68 % (50-85); Total Cells Counted 100
[2021-02-18] MEDS: INSULIN NPH/REGULAR 70/30 100 UNIT/ML SUBCUT SCH ×2 (08:06→17:40)
[2021-02-18] MEDS: INSULIN LISPRO 100 UNIT/ML SUBCUT SCH ×4 (08:06→21:52)
[2021-02-18] MEDS: CINACALCET 30 MG TABLET PO SCH (09:27)
[2021-02-18] MEDS: PANTOPRAZOLE 40 MG TABLET PO SCH (09:28)
[2021-02-18] MEDS: amLODIPine 2.5 MG TABLET PO SCH (09:28)
[2021-02-18] MEDS: APIXABAN 2.5 MG TABLET PO SCH ×2 (09:28→21:50)
[2021-02-18] MEDS: MORPHINE 2 MG/1 ML SYRINGE IV PRN ×2 (09:33→13:39)
[2021-02-18] MEDS: SUCROFERRIC OXYHYDROXIDE 500 MG PO SCH ×3 (12:47→18:11)
[2021-02-18] MEDS: POLYETHYLENE GLYCOL POWDER 17 GM PACK PO SCH (21:52)
[2021-02-19 05:11] LABS: Basophils % 0.5 % (0.0-0.8); Eosinophils # 0.2 10*3/uL (0.0-0.87); Eosinophils % 2.4 % (0.00-10.9); Hematocrit 25.6 VOL% (35.7-47.0); Hemoglobin 8.4 GM/DL (12.0-16.0); Immature Granulocytes % 0.5 %; Immature Granulocytes Absolute 0.04 #; Lymphocytes # 1.5 10*3/uL (1.4-4.0); Lymphocytes % 18.1 % (21.3-54.2); Mean Corpuscular HGB Conc 32.8 GM/DL (32-36); Mean Corpuscular Volume 93.4 FL (87-102); Mean Platelet Volume 11.5 FL (9.6-12.0); Monocytes % 16.9 % (1.7-12.7); Neutrophils % 61.6 % (38.7-73.9); Platelet Count 123 T/CUMM (130-400); Red Blood Count 2.74 MC/CUMM (3.8-5.5); Red Cell Distribution Width 16.4 % (9.3-17.3)
[2021-02-19 05:26] LABS: Calcium 7.7 MG/DL (8.5-10.1); Potassium 4.5 MMOL/L (3.5-5.1)
[2021-02-19 06:12] LABS: Eosinophils 2 % (0-10); Lymphocytes 8 % (20-55); Platelet Estimate Adequate; Polychromasia Slight; Segmented Neutrophils 81 % (50-85); Total Cells Counted 100
[2021-02-19] MEDS: INSULIN NPH/REGULAR 70/30 100 UNIT/ML SUBCUT SCH ×2 (08:48→17:06)
[2021-02-19] MEDS: INSULIN LISPRO 100 UNIT/ML SUBCUT SCH ×4 (08:48→22:37)
[2021-02-19] MEDS: SUCROFERRIC OXYHYDROXIDE 500 MG PO SCH ×3 (08:49→17:06)
[2021-02-19] MEDS: amLODIPine 2.5 MG TABLET PO SCH (08:49)
[2021-02-19] MEDS: APIXABAN 2.5 MG TABLET PO SCH ×2 (08:49→22:28)
[2021-02-19] MEDS: PANTOPRAZOLE 40 MG TABLET PO SCH (08:49)
[2021-02-19] MEDS: POLYETHYLENE GLYCOL POWDER 17 GM PACK PO SCH ×2 (08:49→22:28)
[2021-02-19] MEDS: CINACALCET 30 MG TABLET PO SCH (08:49)
[2021-02-19] MEDS: MORPHINE 2 MG/1 ML SYRINGE IV PRN (15:00)
[2021-02-19] MEDS ORDERED: BISACODYL 10 MG SUPP RECTAL ONE (15:51)
[2021-02-20] MEDS: MORPHINE 2 MG/1 ML SYRINGE IV PRN (04:28)
[2021-02-20 06:06] LABS: Calcium 8.1 MG/DL (8.5-10.1); Osmolality,Calculated 282.4 MOS/KG (273-304); Potassium 4.6 MMOL/L (3.5-5.1)
[2021-02-20] MEDS: INSULIN LISPRO 100 UNIT/ML SUBCUT SCH ×4 (07:39→21:45)
[2021-02-20] MEDS: INSULIN NPH/REGULAR 70/30 100 UNIT/ML SUBCUT SCH ×2 (07:40→18:30)
[2021-02-20] MEDS: SUCROFERRIC OXYHYDROXIDE 500 MG PO SCH ×3 (07:40→18:31)
[2021-02-20] MEDS: ONDANSETRON 4 MG/2 ML VIAL IV PRN (09:25)
[2021-02-20] MEDS: POLYETHYLENE GLYCOL POWDER 17 GM PACK PO SCH ×2 (09:26→21:45)
[2021-02-20] MEDS: amLODIPine 2.5 MG TABLET PO SCH (09:26)
[2021-02-20] MEDS: PANTOPRAZOLE 40 MG TABLET PO SCH (09:26)
[2021-02-20] MEDS: APIXABAN 2.5 MG TABLET PO SCH ×2 (09:26→21:45)
[2021-02-20] MEDS: CINACALCET 30 MG TABLET PO SCH (09:26)
[2021-02-21 05:58] LABS: Basophils % 0.5 % (0.0-0.8); Eosinophils # 0.3 10*3/uL (0.0-0.87); Eosinophils % 4.3 % (0.00-10.9); Hemoglobin 7.9 GM/DL (12.0-16.0); Immature Granulocytes % 0.6 %; Immature Granulocytes Absolute 0.04 #; Lymphocytes # 1.2 10*3/uL (1.4-4.0); Lymphocytes % 19.4 % (21.3-54.2); Mean Corpuscular HGB Conc 31.6 GM/DL (32-36); Mean Corpuscular Volume 95.8 FL (87-102); Mean Platelet Volume 11.2 FL (9.6-12.0); Monocytes % 19.4 % (1.7-12.7); Neutrophils % 55.8 % (38.7-73.9); Platelet Count 163 T/CUMM (130-400); Red Blood Count 2.61 MC/CUMM (3.8-5.5); Red Cell Distribution Width 16.1 % (9.3-17.3); White Blood Count 6.3 T/CUMM (4-12)
[2021-02-21 06:35] LABS: Alanine Aminotransferase < 6 U/L (13-56); Albumin 2.6 G/DL (3.4-5.0); Alkaline Phosphatase 95 U/L (45-117); Aspartate Amino Transferase 17 U/L (0-37); Blood Urea Nitrogen 41 MG/DL (7-18); Carbon Dioxide 30 MMOL/L (21-32); Estimated Glom Filtration Rate 7 ML/MIN; Glucose 80 MG/DL (74-106); Osmolality,Calculated 283.7 MOS/KG (273-304); Potassium 5.1 MMOL/L (3.5-5.1); Sodium 138 MMOL/L (136-145); Total Protein 6.4 G/DL (6.4-8.2)
[2021-02-21 06:44] LABS: Eosinophils 7 % (0-10); Lymphocytes 21 % (20-55); Segmented Neutrophils 58 % (50-85); Total Cells Counted 100
[2021-02-21 06:45] LABS: Hypochromasia 1+; Platelet Estimate Normal
[2021-02-21 06:46] LABS: Anisocytosis 2+; Macrocytosis 1+
[2021-02-21] MEDS: INSULIN LISPRO 100 UNIT/ML SUBCUT SCH ×4 (07:10→20:51)
[2021-02-21] MEDS: INSULIN NPH/REGULAR 70/30 100 UNIT/ML SUBCUT SCH ×2 (07:11→16:29)
[2021-02-21] MEDS: SUCROFERRIC OXYHYDROXIDE 500 MG PO SCH ×3 (07:11→16:29)
[2021-02-21] MEDS: amLODIPine 2.5 MG TABLET PO SCH (08:09)
[2021-02-21] MEDS: PANTOPRAZOLE 40 MG TABLET PO SCH (08:10)
[2021-02-21] MEDS: POLYETHYLENE GLYCOL POWDER 17 GM PACK PO SCH ×2 (08:10→20:47)
[2021-02-21] MEDS: CINACALCET 30 MG TABLET PO SCH (08:10)
[2021-02-21] MEDS: APIXABAN 2.5 MG TABLET PO SCH ×2 (08:10→20:47)
[2021-02-21] MEDS: ONDANSETRON 4 MG/2 ML VIAL IV PRN (11:47)
[2021-02-21] MEDS ORDERED: TUBERCULIN SKIN TEST 0.1 ML SYRINGE INTRADERM ONE (16:45)
[2021-02-22 06:17] LABS: Basophils % 0.8 % (0.0-0.8); Eosinophils # 0.3 10*3/uL (0.0-0.87); Eosinophils % 5.6 % (0.00-10.9); Hematocrit 24.9 VOL% (35.7-47.0); Hemoglobin 7.6 GM/DL (12.0-16.0); Immature Granulocytes % 0.6 %; Immature Granulocytes Absolute 0.03 #; Lymphocytes # 0.8 10*3/uL (1.4-4.0); Lymphocytes % 15.6 % (21.3-54.2); Mean Corpuscular HGB Conc 30.5 GM/DL (32-36); Mean Corpuscular Volume 97.3 FL (87-102); Monocytes % 19.4 % (1.7-12.7); Platelet Count 178 T/CUMM (130-400); Red Blood Count 2.56 MC/CUMM (3.8-5.5); Red Cell Distribution Width 16.2 % (9.3-17.3); White Blood Count 5.3 T/CUMM (4-12)
[2021-02-22 06:42] LABS: Eosinophils 7 % (0-10); Hypochromasia Slight; Lymphocytes 12 % (20-55); Platelet Estimate Normal; Segmented Neutrophils 63 % (50-85); Total Cells Counted 100
[2021-02-22 06:50] LABS: Alanine Aminotransferase < 6 U/L (13-56); Albumin 2.6 G/DL (3.4-5.0); Alkaline Phosphatase 93 U/L (45-117); Aspartate Amino Transferase 12 U/L (0-37); Blood Urea Nitrogen 47 MG/DL (7-18); Calcium 8.7 MG/DL (8.5-10.1); Carbon Dioxide 31 MMOL/L (21-32); Estimated Glom Filtration Rate 5 ML/MIN; Glucose 98 MG/DL (74-106); Osmolality,Calculated 288.5 MOS/KG (273-304); Potassium 5.2 MMOL/L (3.5-5.1); Sodium 139 MMOL/L (136-145); Total Protein 6.4 G/DL (6.4-8.2)
[2021-02-22] MEDS: SUCROFERRIC OXYHYDROXIDE 500 MG PO SCH ×3 (07:11→16:15)
[2021-02-22] MEDS: INSULIN LISPRO 100 UNIT/ML SUBCUT SCH ×4 (07:11→21:28)
[2021-02-22] MEDS: INSULIN NPH/REGULAR 70/30 100 UNIT/ML SUBCUT SCH ×2 (07:11→16:15)
[2021-02-22] MEDS: amLODIPine 2.5 MG TABLET PO SCH (08:00)
[2021-02-22] MEDS: APIXABAN 2.5 MG TABLET PO SCH ×2 (08:00→21:59)
[2021-02-22] MEDS: PANTOPRAZOLE 40 MG TABLET PO SCH (08:00)
[2021-02-22] MEDS: CINACALCET 30 MG TABLET PO SCH (08:00)
[2021-02-22] MEDS: POLYETHYLENE GLYCOL POWDER 17 GM PACK PO SCH ×2 (08:01→21:59)
[2021-02-23 05:38] LABS: Basophils # 0.1 10*3/uL (0.0-0.2); Basophils % 0.9 % (0.0-0.8); Eosinophils # 0.2 10*3/uL (0.0-0.87); Eosinophils % 4.2 % (0.00-10.9); Hematocrit 23.7 VOL% (35.7-47.0); Hemoglobin 7.3 GM/DL (12.0-16.0); Immature Granulocytes % 0.3 %; Immature Granulocytes Absolute 0.02 #; Lymphocytes # 1.3 10*3/uL (1.4-4.0); Lymphocytes % 22.5 % (21.3-54.2); Mean Corpuscular HGB Conc 30.8 GM/DL (32-36); Mean Corpuscular Volume 95.6 FL (87-102); Mean Platelet Volume 10.6 FL (9.6-12.0); Monocytes % 19.4 % (1.7-12.7); Neutrophils % 52.7 % (38.7-73.9); Platelet Count 179 T/CUMM (130-400); Red Blood Count 2.48 MC/CUMM (3.8-5.5); Red Cell Distribution Width 15.9 % (9.3-17.3); White Blood Count 5.8 T/CUMM (4-12)
[2021-02-23 06:02] LABS: Alanine Aminotransferase < 6 U/L (13-56); Albumin 2.6 G/DL (3.4-5.0); Alkaline Phosphatase 95 U/L (45-117); Aspartate Amino Transferase 15 U/L (0-37); Blood Urea Nitrogen 26 MG/DL (7-18); Calcium 7.9 MG/DL (8.5-10.1); Carbon Dioxide 30 MMOL/L (21-32); Estimated Glom Filtration Rate 9 ML/MIN; Glucose 91 MG/DL (74-106); Osmolality,Calculated 281.5 MOS/KG (273-304); Potassium 4.5 MMOL/L (3.5-5.1); Sodium 139 MMOL/L (136-145); Total Protein 6.3 G/DL (6.4-8.2)
[2021-02-23 06:07] LABS: Atypical Lymphocytes Few; Eosinophils 6 % (0-10); Hypochromasia 1+; Lymphocytes 24 % (20-55); Microcytosis 1+; Ovalocytes Slight; Platelet Estimate Adequate; Segmented Neutrophils 48 % (50-85); Total Cells Counted 100
[2021-02-23] MEDS: PANTOPRAZOLE 40 MG TABLET PO SCH (09:22)
[2021-02-23] MEDS: POLYETHYLENE GLYCOL POWDER 17 GM PACK PO SCH ×2 (09:22→20:41)
[2021-02-23] MEDS: APIXABAN 2.5 MG TABLET PO SCH ×2 (09:22→20:35)
[2021-02-23] MEDS: amLODIPine 2.5 MG TABLET PO SCH (09:22)
[2021-02-23] MEDS: CINACALCET 30 MG TABLET PO SCH (09:22)
[2021-02-23] MEDS: INSULIN LISPRO 100 UNIT/ML SUBCUT SCH ×4 (09:27→22:23)
[2021-02-23] MEDS: INSULIN NPH/REGULAR 70/30 100 UNIT/ML SUBCUT SCH ×2 (09:28→17:48)
[2021-02-23] MEDS: SUCROFERRIC OXYHYDROXIDE 500 MG PO SCH ×3 (09:30→17:48)
[2021-02-23] MEDS ORDERED: SODIUM CHLORIDE 0.9% 1,000 ML IV PRN (11:37)
[2021-02-23 11:55] LABS: % Iron Saturation 31.4 % (18-50)
[2021-02-24 07:27] VITALS: BP 122/61
[2021-02-24] MEDS: INSULIN LISPRO 100 UNIT/ML SUBCUT SCH ×2 (07:49→12:33)
[2021-02-24] MEDS: INSULIN NPH/REGULAR 70/30 100 UNIT/ML SUBCUT SCH (07:50)
[2021-02-24] MEDS: SUCROFERRIC OXYHYDROXIDE 500 MG PO SCH ×2 (07:50→15:06)
[2021-02-24] MEDS: APIXABAN 2.5 MG TABLET PO SCH (12:32)
[2021-02-24] MEDS: PANTOPRAZOLE 40 MG TABLET PO SCH (12:32)
[2021-02-24] MEDS: POLYETHYLENE GLYCOL POWDER 17 GM PACK PO SCH (12:32)
[2021-02-24] MEDS: amLODIPine 2.5 MG TABLET PO SCH (12:32)
[2021-02-24] MEDS: CINACALCET 30 MG TABLET PO SCH (12:33)
== END 2021-02-24 16:39 | DRG 521 ==
LOC: N.ED 09:55 → N.EDINP 12:10 → SUATTDRO 12:10 → N.3E 16:00
PROVIDERS: ADMIT Internal Medicine; ATTEND Internal Medicine

== ENCOUNTER 2021-11-25 19:03 | Observation (INO) ==
[2021-11-25] MEDS ORDERED: ONDANSETRON 4 MG/2 ML VIAL IV STA (22:12)
[2021-11-25] MEDS ORDERED: MORPHINE 2 MG/1 ML SYRINGE IV STA (22:13)
[2021-11-25 23:33] LABS: Basophils # 0.1 10*3/uL (0.0-0.2); Basophils % 0.6 % (0.0-0.8); Eosinophils % 0.2 % (0.00-10.9); Hematocrit 33.9 VOL% (35.7-47.0); Hemoglobin 10.7 GM/DL (12.0-16.0); Immature Granulocytes % 0.5 %; Immature Granulocytes Absolute 0.04 #; Lymphocytes % 12.8 % (21.3-54.2); Mean Corpuscular HGB Conc 31.6 GM/DL (32-36); Mean Platelet Volume 10.5 FL (9.6-12.0); Monocytes # 1.1 10*3/uL (0.11-0.8); Monocytes % 13.4 % (1.7-12.7); Neutrophils % 72.5 % (38.7-73.9); Platelet Count 174 T/CUMM (130-400); Red Blood Count 3.57 MC/CUMM (3.8-5.5); Red Cell Distribution Width 15.7 % (9.3-17.3); White Blood Count 8.2 T/CUMM (4-12)
[2021-11-25] MEDS ORDERED: GLUCAGON 1 MG VIAL IM PRN (23:38)
[2021-11-25 23:46] LABS: INR 1.1; PT Patient Result 11.6 SECS (10.1-12.1)
[2021-11-25] MEDS ORDERED: DEXTROSE 10% 250 ML BAG IV PRN (23:56)
[2021-11-25 23:59] LABS: Albumin 3.2 G/DL (3.4-5.0); Bilirubin,Total 0.5 MG/DL (0.20-1.00); Calcium 10.3 MG/DL (8.5-10.1); Potassium 3.9 MMOL/L (3.5-5.1); Total Protein 7.7 G/DL (6.4-8.2)
[2021-11-26] MEDS: SODIUM CHLORIDE 0.9% 1,000 ML IV SCH ×2 (01:05→13:37)
[2021-11-26] MEDS: MORPHINE 2 MG/1 ML SYRINGE IV PRN ×2 (02:01→05:56)
[2021-11-26] MEDS: INSULIN LISPRO 100 UNIT/ML SUBCUT SCH ×4 (07:49→20:45)
[2021-11-26] MEDS: PANTOPRAZOLE 40 MG TABLET PO SCH (09:25)
[2021-11-26] MEDS: CINACALCET 30 MG TABLET PO SCH (09:25)
[2021-11-26] MEDS: amLODIPine 2.5 MG TABLET PO SCH (09:25)
[2021-11-27] MEDS: INSULIN LISPRO 100 UNIT/ML SUBCUT SCH ×4 (07:49→20:17)
[2021-11-27] MEDS: CINACALCET 30 MG TABLET PO SCH (09:24)
[2021-11-27] MEDS: PANTOPRAZOLE 40 MG TABLET PO SCH (09:24)
[2021-11-27] MEDS: amLODIPine 2.5 MG TABLET PO SCH (09:25)
[2021-11-27] MEDS: MORPHINE 2 MG/1 ML SYRINGE IV PRN (09:25)
[2021-11-28] MEDS: INSULIN LISPRO 100 UNIT/ML SUBCUT SCH ×4 (07:26→22:04)
[2021-11-28] MEDS: amLODIPine 2.5 MG TABLET PO SCH (08:27)
[2021-11-28] MEDS: CINACALCET 30 MG TABLET PO SCH (08:28)
[2021-11-28] MEDS: PANTOPRAZOLE 40 MG TABLET PO SCH (08:29)
[2021-11-29] MEDS: INSULIN LISPRO 100 UNIT/ML SUBCUT SCH ×3 (07:36→15:55)
[2021-11-29] MEDS: PANTOPRAZOLE 40 MG TABLET PO SCH (09:18)
[2021-11-29] MEDS: amLODIPine 2.5 MG TABLET PO SCH (09:18)
[2021-11-29] MEDS: CINACALCET 30 MG TABLET PO SCH ×2 (12:22→17:27)
[2021-11-29] MEDS: MORPHINE 2 MG/1 ML SYRINGE IV PRN (12:24)
[2021-11-29] MEDS: APIXABAN 2.5 MG TABLET PO SCH (21:26)
[2021-11-30] MEDS: INSULIN LISPRO 100 UNIT/ML SUBCUT SCH ×5 (01:19→23:50)
[2021-11-30 05:56] LABS: Basophils % 0.4 % (0.0-0.8); Eosinophils # 0.1 10*3/uL (0.0-0.87); Eosinophils % 1.3 % (0.00-10.9); Hematocrit 33.1 VOL% (35.7-47.0); Hemoglobin 10.5 GM/DL (12.0-16.0); Immature Granulocytes % 0.4 %; Immature Granulocytes Absolute 0.03 #; Lymphocytes # 1.1 10*3/uL (1.4-4.0); Lymphocytes % 15.9 % (21.3-54.2); Mean Corpuscular HGB Conc 31.7 GM/DL (32-36); Mean Corpuscular Volume 92.7 FL (87-102); Mean Platelet Volume 10.8 FL (9.6-12.0); Monocytes # 1.2 10*3/uL (0.11-0.8); Monocytes % 17.8 % (1.7-12.7); Neutrophils % 64.2 % (38.7-73.9); Platelet Count 170 T/CUMM (130-400); Red Blood Count 3.57 MC/CUMM (3.8-5.5); Red Cell Distribution Width 15.9 % (9.3-17.3); White Blood Count 6.7 T/CUMM (4-12)
[2021-11-30 06:16] LABS: Eosinophils 1 % (0-10); Lymphocytes 13 % (20-55); Platelet Estimate Adequate; Total Cells Counted 100
[2021-11-30 06:23] LABS: Osmolality,Calculated 285.8 MOS/KG (273-304); Potassium 4.4 MMOL/L (3.5-5.1)
[2021-11-30] MEDS: APIXABAN 2.5 MG TABLET PO SCH ×2 (08:35→21:02)
[2021-11-30] MEDS: PANTOPRAZOLE 40 MG TABLET PO SCH (08:35)
[2021-11-30] MEDS: amLODIPine 2.5 MG TABLET PO SCH (08:35)
[2021-11-30] MEDS: CINACALCET 30 MG TABLET PO SCH (12:07)
[2021-12-01 04:49] LABS: Basophils % 0.5 % (0.0-0.8); Eosinophils # 0.1 10*3/uL (0.0-0.87); Eosinophils % 1.4 % (0.00-10.9); Hematocrit 31.7 VOL% (35.7-47.0); Hemoglobin 10.1 GM/DL (12.0-16.0); Immature Granulocytes % 0.6 %; Immature Granulocytes Absolute 0.04 #; Lymphocytes # 1.2 10*3/uL (1.4-4.0); Lymphocytes % 19.6 % (21.3-54.2); Mean Corpuscular HGB Conc 31.9 GM/DL (32-36); Mean Corpuscular Volume 91.6 FL (87-102); Monocytes # 1.3 10*3/uL (0.11-0.8); Monocytes % 20.1 % (1.7-12.7); Neutrophils % 57.8 % (38.7-73.9); Platelet Count 151 T/CUMM (130-400); Red Blood Count 3.46 MC/CUMM (3.8-5.5); Red Cell Distribution Width 15.9 % (9.3-17.3); White Blood Count 6.3 T/CUMM (4-12)
[2021-12-01 05:04] LABS: Calcium 8.9 MG/DL (8.5-10.1)
[2021-12-01 05:19] LABS: Eosinophils 1 % (0-10); Lymphocytes 16 % (20-55); Platelet Estimate Adequate; Total Cells Counted 100
[2021-12-01] MEDS: INSULIN LISPRO 100 UNIT/ML SUBCUT SCH ×2 (08:10→11:42)
[2021-12-01] MEDS ORDERED: TUBERCULIN SKIN TEST 0.1 ML SYRINGE INTRADERM ONE (09:23)
[2021-12-01] MEDS: APIXABAN 2.5 MG TABLET PO SCH (09:27)
[2021-12-01] MEDS: amLODIPine 2.5 MG TABLET PO SCH (09:27)
[2021-12-01] MEDS: PANTOPRAZOLE 40 MG TABLET PO SCH (09:28)
[2021-12-01 11:13] VITALS: BP 124/50
[2021-12-01] MEDS: CINACALCET 30 MG TABLET PO SCH (12:42)
== END 2021-12-01 12:57 | disposition swing bed (61) ==
LOC: EDUNIT# → EDBD → N.ED 19:03 → N.EDINP 23:38 → INTOOBSV 23:38 → SUATTDRO 23:38 → N.3E 11-26 01:35
PROVIDERS: ADMIT Internal Medicine; ATTEND Internal Medicine

== ENCOUNTER 2021-12-20 11:34 | Inpatient (IN) ==
[2021-12-20 13:25] LABS: Basophils # 0.1 10*3/uL (0.0-0.2); Basophils % 0.2 % (0.0-0.8); Hematocrit 32.1 VOL% (35.7-47.0); Hemoglobin 10.1 GM/DL (12.0-16.0); Immature Granulocytes Absolute 0.21 #; Lymphocytes # 0.8 10*3/uL (1.4-4.0); Lymphocytes % 3.9 % (21.3-54.2); Mean Corpuscular HGB Conc 31.5 GM/DL (32-36); Mean Corpuscular Volume 88.7 FL (87-102); Mean Platelet Volume 11.4 FL (9.6-12.0); Monocytes # 1.5 10*3/uL (0.11-0.8); Monocytes % 6.8 % (1.7-12.7); Neutrophils % 88.1 % (38.7-73.9); Platelet Count 267 T/CUMM (130-400); Red Blood Count 3.62 MC/CUMM (3.8-5.5); Red Cell Distribution Width 17.3 % (9.3-17.3); White Blood Count 21.5 T/CUMM (4-12)
[2021-12-20 13:52] LABS: Alanine Aminotransferase 12 U/L (13-56); Alkaline Phosphatase 191 U/L (45-117); Aspartate Amino Transferase 34 U/L (0-37); Blood Urea Nitrogen 40 MG/DL (7-18); Calcium 10.3 MG/DL (8.5-10.1); Carbon Dioxide 31 MMOL/L (21-32); Chloride 98 MMOL/L (98-107); Glucose 110 MG/DL (74-106); Osmolality,Calculated 283.8 MOS/KG (273-304); Potassium 3.9 MMOL/L (3.5-5.1); Sodium 137 MMOL/L (136-145)
[2021-12-20 13:53] LABS: Band Neutrophils 31 % (0-10); Lymphocytes 6 % (20-55)
[2021-12-20 13:54] LABS: Platelet Estimate Adequate; Total Cells Counted 100
[2021-12-20] MEDS ORDERED: SODIUM CHLORIDE 0.9% 1,650 ML IV ONE (14:00)
[2021-12-20] MEDS ORDERED: PIPERACILLIN/TAZOBACTAM 3,375 MG VIAL IV ONE (14:09)
[2021-12-20] MEDS: PIPERACILLIN/TAZOBACTAM 3,375 MG in SODIUM CHLORIDE 0.9% 100 ML IV SCH (14:10)
[2021-12-20] MEDS ORDERED: VANCOMYCIN INJ 750 MG in SODIUM CHLORIDE 0.9% 250 ML IV ONE (14:30)
[2021-12-20] MEDS ORDERED: hydrALAZINE 20 MG/1 ML VIAL IV PRN (14:31)
[2021-12-20] MEDS ORDERED: ONDANSETRON 4 MG/2 ML VIAL IV PRN (14:31)
[2021-12-20] MEDS ORDERED: GLUCAGON 1 MG VIAL IM PRN ×2 (14:31→17:20)
[2021-12-20] MEDS ORDERED: VANCOMYCIN INJ 500 MG in SODIUM CHLORIDE 0.9% 100 ML IV ONE (15:30)
[2021-12-20] MEDS ORDERED: INSULIN NPH/REGULAR 70/30 100 UNIT/ML SUBCUT SCH (17:00)
[2021-12-20] MEDS ORDERED: DEXTROSE 50% 25 GM/50 ML VIAL IV PRN (17:20)
[2021-12-20] MEDS: INSULIN LISPRO 100 UNIT/ML SUBCUT SCH ×2 (17:31→20:33)
[2021-12-20] MEDS: SUCROFERRIC OXYHYDROXIDE 500 MG PO SCH (17:31)
[2021-12-20] MEDS: DEXTROSE 10% 250 ML BAG IV PRN (20:00)
[2021-12-20] MEDS: DOCUSATE SODIUM 100 MG CAPSULE PO SCH (20:33)
[2021-12-20] MEDS: SODIUM HYPOCHLORITE 0.25% IRRIG 473 ML BOTTLE TOP SCH (21:59)
[2021-12-20] MEDS ORDERED: DEXTROSE 10% 250 ML BAG IV ONE (22:53)
[2021-12-20] MEDS: HYDROCORTISONE 100 MG VIAL IV SCH (23:10)
[2021-12-21] MEDS ORDERED: NOREPINEPHRINE 4 MG/4 ML VIAL IV ONE (00:07)
[2021-12-21] MEDS: NOREPINEPHRINE 8 MG in SODIUM CHLORIDE 0.9% 242 ML IV PRN ×3 (00:15→23:47)
[2021-12-21] MEDS: PIPERACILLIN/TAZOBACTAM 3,375 MG in SODIUM CHLORIDE 0.9% 100 ML IV SCH ×2 (01:05→14:05)
[2021-12-21] MEDS: DEXTROSE 10% 250 ML BAG IV PRN (04:40)
[2021-12-21 05:50] LABS: Basophils # 0.1 10*3/uL (0.0-0.2); Basophils % 0.3 % (0.0-0.8); Hemoglobin 9.5 GM/DL (12.0-16.0); Immature Granulocytes % 0.2 %; Immature Granulocytes Absolute 0.06 #; Lymphocytes # 1.3 10*3/uL (1.4-4.0); Lymphocytes % 4.8 % (21.3-54.2); Mean Corpuscular HGB Conc 32.8 GM/DL (32-36); Mean Corpuscular Volume 86.6 FL (87-102); Mean Platelet Volume 11.3 FL (9.6-12.0); Monocytes # 2.5 10*3/uL (0.11-0.8); Monocytes % 8.8 % (1.7-12.7); Neutrophils % 85.9 % (38.7-73.9); Platelet Count 245 T/CUMM (130-400); Red Blood Count 3.35 MC/CUMM (3.8-5.5); Red Cell Distribution Width 17.3 % (9.3-17.3); White Blood Count 27.9 T/CUMM (4-12)
[2021-12-21 06:17] LABS: Band Neutrophils 5 % (0-10); Hypochromia Slight; Lymphocytes 4 % (20-55); Microcytosis Slight; Platelet Estimate Adequate; Total Cells Counted 100
[2021-12-21] MEDS: HYDROCORTISONE 100 MG VIAL IV SCH ×3 (06:21→22:46)
[2021-12-21 06:23] LABS: Albumin 1.6 G/DL (3.4-5.0); Bilirubin,Total 0.7 MG/DL (0.20-1.00); Calcium 10.7 MG/DL (8.5-10.1); Potassium 3.4 MMOL/L (3.5-5.1); Thyroid Stimulating Hormone 1.91 uIU/ml (0.358-3.74); Total Protein 6.1 G/DL (6.4-8.2); VLDL Cholesterol 22.6 MG/DL
[2021-12-21] MEDS: SUCROFERRIC OXYHYDROXIDE 500 MG PO SCH ×3 (08:00→17:00)
[2021-12-21] MEDS ORDERED: INSULIN NPH/REGULAR 70/30 100 UNIT/ML SUBCUT SCH (08:00)
[2021-12-21] MEDS: PANTOPRAZOLE 40 MG TABLET PO SCH (09:00)
[2021-12-21] MEDS: SODIUM HYPOCHLORITE 0.25% IRRIG 473 ML BOTTLE TOP SCH ×2 (09:00→22:27)
[2021-12-21] MEDS: DOCUSATE SODIUM 100 MG CAPSULE PO SCH ×2 (09:00→20:10)
[2021-12-21] MEDS ORDERED: amLODIPine 2.5 MG TABLET PO SCH (09:00)
[2021-12-21] MEDS ORDERED: KETAMINE 500 MG/10 ML VIAL ONE (09:05)
[2021-12-21] MEDS ORDERED: propofoL 200 MG/20 ML VIAL IV ONE (09:10)
[2021-12-21] MEDS ORDERED: EPOETIN ALFA-EPBX 4,000 UNIT/ML VIAL IV PRN (15:08)
[2021-12-21] MEDS ORDERED: VANCOMYCIN INJ 500 MG in SODIUM CHLORIDE 0.9% 100 ML IV PRN (17:00)
[2021-12-21] MEDS ORDERED: VANCOMYCIN INJ 500 MG in SODIUM CHLORIDE 0.9% 100 ML IV ONE (17:30)
[2021-12-22] MEDS: PIPERACILLIN/TAZOBACTAM 3,375 MG in SODIUM CHLORIDE 0.9% 100 ML IV SCH ×2 (01:29→13:30)
[2021-12-22 04:30] LABS: Basophils # 0.1 10*3/uL (0.0-0.2); Basophils % 0.4 % (0.0-0.8); Hemoglobin 9.6 GM/DL (12.0-16.0); Immature Granulocytes Absolute 0.55 #; Lymphocytes # 1.2 10*3/uL (1.4-4.0); Lymphocytes % 4.3 % (21.3-54.2); Mean Corpuscular Volume 88.2 FL (87-102); Mean Platelet Volume 11.2 FL (9.6-12.0); Monocytes # 1.5 10*3/uL (0.11-0.8); Monocytes % 5.7 % (1.7-12.7); NRBC # 0.07 10*3/uL; Neutrophils % 87.6 % (38.7-73.9); Platelet Count 222 T/CUMM (130-400); Red Cell Distribution Width 17.7 % (9.3-17.3); White Blood Count 27.2 T/CUMM (4-12)
[2021-12-22 04:48] LABS: Albumin 1.5 G/DL (3.4-5.0); Bilirubin,Total 0.6 MG/DL (0.20-1.00); Calcium 9.8 MG/DL (8.5-10.1); Osmolality,Calculated 301.5 MOS/KG (273-304); Potassium 4.1 MMOL/L (3.5-5.1); Total Protein 5.7 G/DL (6.4-8.2)
[2021-12-22 04:50] LABS: Hypochromia Slight; Lymphocytes 4 % (20-55); Microcytosis Slight; Platelet Estimate Adequate; Total Cells Counted 100
[2021-12-22 05:00] LABS: Parathyroid Hormone Intact 563.3 PG/ML (18.4-80.1)
[2021-12-22] MEDS: HYDROCORTISONE 100 MG VIAL IV SCH ×3 (05:58→21:21)
[2021-12-22] MEDS ORDERED: SODIUM CHLORIDE 0.9% 500 ML IV ONE (07:41)
[2021-12-22] MEDS: PANTOPRAZOLE 40 MG TABLET PO SCH (07:50)
[2021-12-22] MEDS: NOREPINEPHRINE 8 MG in SODIUM CHLORIDE 0.9% 242 ML IV PRN ×2 (07:50→15:45)
[2021-12-22] MEDS: DOCUSATE SODIUM 100 MG CAPSULE PO SCH ×2 (07:50→20:30)
[2021-12-22] MEDS: SUCROFERRIC OXYHYDROXIDE 500 MG PO SCH ×3 (08:00→17:00)
[2021-12-22 11:51] LABS: Hepatitis B Core IgM Quant 0.14 Index; Hepatitis B Surface Ag Quant < 0.10 Index; Hepatitis B Surface Ag Result Non-Reactive (NonReactive); Hepatitis C Virus Ab Quant 0.28 Index; Hepatitis C Virus Ab Result Non-Reactive (NonReactive)
[2021-12-22] MEDS: INSULIN LISPRO 100 UNIT/ML SUBCUT SCH ×3 (11:55→20:30)
[2021-12-22] MEDS: SODIUM HYPOCHLORITE 0.25% IRRIG 473 ML BOTTLE TOP SCH ×2 (14:30→20:34)
[2021-12-22] MEDS: MIDODRINE 5 MG TABLET PO SCH ×2 (15:15→20:30)
[2021-12-22] MEDS ORDERED: VANCOMYCIN INJ 500 MG in SODIUM CHLORIDE 0.9% 100 ML IV ONE (17:00)
[2021-12-23] MEDS: NOREPINEPHRINE 8 MG in SODIUM CHLORIDE 0.9% 242 ML IV PRN ×2 (00:49→15:50)
[2021-12-23] MEDS: PIPERACILLIN/TAZOBACTAM 3,375 MG in SODIUM CHLORIDE 0.9% 100 ML IV SCH ×2 (02:10→16:58)
[2021-12-23 04:40] LABS: Basophils # 0.1 10*3/uL (0.0-0.2); Basophils % 0.2 % (0.0-0.8); Hematocrit 23.8 VOL% (35.7-47.0); Hemoglobin 7.6 GM/DL (12.0-16.0); Immature Granulocytes % 4.1 %; Immature Granulocytes Absolute 1.22 #; Lymphocytes # 1.4 10*3/uL (1.4-4.0); Lymphocytes % 4.8 % (21.3-54.2); Mean Corpuscular HGB Conc 31.9 GM/DL (32-36); Mean Corpuscular Volume 87.8 FL (87-102); Mean Platelet Volume 11.6 FL (9.6-12.0); Monocytes % 6.8 % (1.7-12.7); NRBC # 0.11 10*3/uL; Neutrophils % 84.1 % (38.7-73.9); Platelet Count 174 T/CUMM (130-400); Red Blood Count 2.71 MC/CUMM (3.8-5.5); Red Cell Distribution Width 17.8 % (9.3-17.3); White Blood Count 29.7 T/CUMM (4-12)
[2021-12-23 04:53] LABS: Calcium 9.4 MG/DL (8.5-10.1); Osmolality,Calculated 290.8 MOS/KG (273-304); Potassium 3.7 MMOL/L (3.5-5.1)
[2021-12-23 04:54] LABS: Hypochromia Slight; Lymphocytes 7 % (20-55); Microcytosis Slight; Platelet Estimate Adequate; Total Cells Counted 100
[2021-12-23] MEDS: HYDROCORTISONE 100 MG VIAL IV SCH ×2 (05:57→16:56)
[2021-12-23] MEDS: INSULIN LISPRO 100 UNIT/ML SUBCUT SCH ×4 (07:15→21:04)
[2021-12-23] MEDS: SUCROFERRIC OXYHYDROXIDE 500 MG PO SCH ×3 (07:38→17:22)
[2021-12-23] MEDS ORDERED: propofoL 200 MG/20 ML VIAL IV ONE (08:45)
[2021-12-23] MEDS ORDERED: KETAMINE 500 MG/10 ML VIAL ONE (08:45)
[2021-12-23] MEDS: SODIUM HYPOCHLORITE 0.25% IRRIG 473 ML BOTTLE TOP SCH ×2 (09:00→21:03)
[2021-12-23] MEDS: MIDODRINE 5 MG TABLET PO SCH ×2 (10:47→14:59)
[2021-12-23] MEDS: DOCUSATE SODIUM 100 MG CAPSULE PO SCH ×2 (10:48→21:03)
[2021-12-23] MEDS: PANTOPRAZOLE 40 MG TABLET PO SCH (10:48)
[2021-12-23] MEDS ORDERED: SODIUM CHLORIDE 0.9% 1,000 ML IV PRN (12:41)
[2021-12-23] MEDS ORDERED: ATROPINE 1 MG/10 ML SYRINGE ONE (16:28)
[2021-12-23 17:28] LABS: Calcium 8.7 MG/DL (8.5-10.1); Osmolality,Calculated 283.4 MOS/KG (273-304)
[2021-12-23] MEDS ORDERED: MAGNESIUM SULF RIDER 2 GM/50 ML PREMIX IV ONE (17:46)
[2021-12-23] MEDS ORDERED: POTASSIUM CHLORIDE 20 MEQ TABLET PO ONE (17:46)
[2021-12-24] MEDS: HYDROCORTISONE 100 MG VIAL IV SCH ×2 (01:12→09:37)
[2021-12-24] MEDS: PIPERACILLIN/TAZOBACTAM 3,375 MG in SODIUM CHLORIDE 0.9% 100 ML IV SCH ×2 (04:14→17:38)
[2021-12-24 04:26] LABS: Basophils % 0.1 % (0.0-0.8); Hematocrit 26.1 VOL% (35.7-47.0); Hemoglobin 8.4 GM/DL (12.0-16.0); Immature Granulocytes % 4.7 %; Immature Granulocytes Absolute 1.08 #; Lymphocytes # 1.1 10*3/uL (1.4-4.0); Lymphocytes % 4.8 % (21.3-54.2); Mean Corpuscular HGB Conc 32.2 GM/DL (32-36); Mean Corpuscular Volume 89.1 FL (87-102); Mean Platelet Volume 11.5 FL (9.6-12.0); Monocytes # 1.6 10*3/uL (0.11-0.8); Monocytes % 6.9 % (1.7-12.7); NRBC # 0.31 10*3/uL; Neutrophils % 83.5 % (38.7-73.9); Platelet Count 123 T/CUMM (130-400); Red Blood Count 2.93 MC/CUMM (3.8-5.5); Red Cell Distribution Width 18.2 % (9.3-17.3); White Blood Count 23.2 T/CUMM (4-12)
[2021-12-24 04:41] LABS: Albumin 1.5 G/DL (3.4-5.0); Bilirubin,Total 0.5 MG/DL (0.20-1.00); Calcium 9.2 MG/DL (8.5-10.1); Osmolality,Calculated 288.4 MOS/KG (273-304); Potassium 3.8 MMOL/L (3.5-5.1); Total Protein 5.4 G/DL (6.4-8.2)
[2021-12-24 05:18] LABS: Lymphocytes 3 % (20-55); Total Cells Counted 100
[2021-12-24 05:19] LABS: Platelet Estimate Normal
[2021-12-24] MEDS: NOREPINEPHRINE 8 MG in SODIUM CHLORIDE 0.9% 242 ML IV PRN (06:38)
[2021-12-24] MEDS: INSULIN LISPRO 100 UNIT/ML SUBCUT SCH ×3 (07:48→17:40)
[2021-12-24] MEDS: SEVELAMER CARBONATE 800 MG TABLET PO SCH ×4 (08:45→17:41)
[2021-12-24] MEDS: PANTOPRAZOLE 40 MG TABLET PO SCH (09:28)
[2021-12-24] MEDS: CHOLECALCIFEROL 5,000 UNIT TABLET PO SCH (09:28)
[2021-12-24] MEDS: SODIUM HYPOCHLORITE 0.25% IRRIG 473 ML BOTTLE TOP SCH ×2 (09:28→21:14)
[2021-12-24] MEDS: DOCUSATE SODIUM 100 MG CAPSULE PO SCH ×2 (09:28→20:54)
[2021-12-24] MEDS: ALBUMIN 25% 25 GM/100 ML VIAL IV SCH ×2 (13:41→20:53)
[2021-12-24] MEDS ORDERED: VANCOMYCIN INJ 500 MG in SODIUM CHLORIDE 0.9% 100 ML IV ONE (17:00)
[2021-12-24] MEDS ORDERED: HYDROCORTISONE 100 MG VIAL IV SCH (21:00)
[2021-12-25] MEDS: INSULIN LISPRO 100 UNIT/ML SUBCUT SCH ×4 (00:17→18:34)
[2021-12-25] MEDS: NOREPINEPHRINE 8 MG in SODIUM CHLORIDE 0.9% 242 ML IV PRN (02:50)
[2021-12-25 04:16] LABS: Arterial Base Excess iSTAT 0 MMOL/L (-2.5-2.5); Arterial Bicarbonate iSTAT 27.1 MMOL/L (20-26); Arterial O2 Saturation iSTAT 98 % (95-100); Arterial PCO2 iSTAT 55 MM HG (35-48); Arterial PO2 iSTAT 117 MM HG (80-95); Arterial Total CO2 iSTAT 29 MMO/L (23-27); Arterial pH iSTAT 7.304 (7.35-7.45)
[2021-12-25] MEDS: PIPERACILLIN/TAZOBACTAM 3,375 MG in SODIUM CHLORIDE 0.9% 100 ML IV SCH ×2 (04:31→16:43)
[2021-12-25] MEDS: ALBUMIN 25% 25 GM/100 ML VIAL IV SCH (04:31)
[2021-12-25 06:29] LABS: Basophils # 0.1 10*3/uL (0.0-0.2); Basophils % 0.5 % (0.0-0.8); Hematocrit 21.4 VOL% (35.7-47.0); Hemoglobin 6.9 GM/DL (12.0-16.0); Immature Granulocytes Absolute 0.73 #; Lymphocytes % 6.8 % (21.3-54.2); Mean Corpuscular HGB Conc 32.2 GM/DL (32-36); Mean Corpuscular Volume 88.1 FL (87-102); Mean Platelet Volume 11.8 FL (9.6-12.0); Monocytes # 1.3 10*3/uL (0.11-0.8); NRBC # 0.31 10*3/uL; Neutrophils % 78.7 % (38.7-73.9); Platelet Count 118 T/CUMM (130-400); Red Blood Count 2.43 MC/CUMM (3.8-5.5); Red Cell Distribution Width 17.9 % (9.3-17.3); White Blood Count 14.6 T/CUMM (4-12)
[2021-12-25] MEDS ORDERED: SODIUM CHLORIDE 0.9% 1,000 ML IV PRN ×2 (06:59→07:48)
[2021-12-25 07:41] LABS: Lymphocytes 14 % (20-55); Nucleated Red Blood Cells 1 /100 WBC (0-5); Platelet Estimate Adequate; Total Cells Counted 100
[2021-12-25 08:05] LABS: Albumin 2.7 G/DL (3.4-5.0); Bilirubin,Total 0.5 MG/DL (0.20-1.00); Calcium 8.8 MG/DL (8.5-10.1); Osmolality,Calculated 301.3 MOS/KG (273-304); Potassium 3.7 MMOL/L (3.5-5.1); Total Protein 5.7 G/DL (6.4-8.2)
[2021-12-25] MEDS: HYDROCORTISONE 100 MG VIAL IV SCH ×2 (09:10→20:34)
[2021-12-25] MEDS: PANTOPRAZOLE 40 MG VIAL IV SCH ×2 (09:10→20:34)
[2021-12-25] MEDS: DOCUSATE SODIUM 100 MG CAPSULE PO SCH ×2 (09:10→20:35)
[2021-12-25] MEDS: SEVELAMER CARBONATE 800 MG TABLET PO SCH ×3 (09:11→16:43)
[2021-12-25] MEDS: CHOLECALCIFEROL 5,000 UNIT TABLET PO SCH (09:11)
[2021-12-25 12:30] LABS: Arterial Base Excess iSTAT -1 MMOL/L (-2.5-2.5); Arterial Bicarbonate iSTAT 26.5 MMOL/L (20-26); Arterial O2 Saturation iSTAT 80 % (95-100); Arterial PCO2 iSTAT 55 MM HG (35-48); Arterial PO2 iSTAT 51 MM HG (80-95); Arterial Total CO2 iSTAT 28 MMO/L (23-27); Arterial pH iSTAT 7.289 (7.35-7.45)
[2021-12-25] MEDS: SODIUM HYPOCHLORITE 0.25% IRRIG 473 ML BOTTLE TOP SCH ×2 (12:39→20:35)
[2021-12-26] MEDS: INSULIN LISPRO 100 UNIT/ML SUBCUT SCH ×5 (00:16→23:54)
[2021-12-26 03:54] LABS: Arterial Base Excess iSTAT -2 MMOL/L (-2.5-2.5); Arterial Bicarbonate iSTAT 24.7 MMOL/L (20-26); Arterial O2 Saturation iSTAT 97 % (95-100); Arterial PCO2 iSTAT 47 MM HG (35-48); Arterial PO2 iSTAT 100 MM HG (80-95); Arterial Total CO2 iSTAT 26 MMO/L (23-27); Arterial pH iSTAT 7.326 (7.35-7.45)
[2021-12-26] MEDS: PIPERACILLIN/TAZOBACTAM 3,375 MG in SODIUM CHLORIDE 0.9% 100 ML IV SCH (05:44)
[2021-12-26 06:27] LABS: Basophils # 0.1 10*3/uL (0.0-0.2); Basophils % 0.4 % (0.0-0.8); Hemoglobin 9.9 GM/DL (12.0-16.0); Immature Granulocytes % 7.2 %; Immature Granulocytes Absolute 1.63 #; Lymphocytes % 4.3 % (21.3-54.2); Monocytes # 1.2 10*3/uL (0.11-0.8); Monocytes % 5.3 % (1.7-12.7); NRBC # 0.33 10*3/uL; Neutrophils % 82.8 % (38.7-73.9); Platelet Count 90 T/CUMM (130-400); Red Blood Count 3.41 MC/CUMM (3.8-5.5); Red Cell Distribution Width 17.6 % (9.3-17.3); White Blood Count 22.6 T/CUMM (4-12)
[2021-12-26 06:45] LABS: Calcium 8.8 MG/DL (8.5-10.1); Osmolality,Calculated 300.5 MOS/KG (273-304); Phosphorous 3.8 MG/DL (2.5-4.9); Potassium 3.8 MMOL/L (3.5-5.1)
[2021-12-26 06:48] LABS: Hypochromia Slight; Lymphocytes 1 % (20-55); Microcytosis Slight; Nucleated Red Blood Cells 1 /100 WBC (0-5); Platelet Estimate Decreased; Total Cells Counted 100
[2021-12-26 07:32] LABS: Albumin 2.1 G/DL (3.4-5.0); Bilirubin,Total 0.6 MG/DL (0.20-1.00); Calcium 8.8 MG/DL (8.5-10.1); Osmolality,Calculated 303.4 MOS/KG (273-304); Potassium 3.8 MMOL/L (3.5-5.1); Total Protein 5.4 G/DL (6.4-8.2)
[2021-12-26] MEDS: HYDROCORTISONE 100 MG VIAL IV SCH ×2 (08:58→20:38)
[2021-12-26] MEDS: SEVELAMER CARBONATE 800 MG TABLET PO SCH ×3 (08:58→17:15)
[2021-12-26] MEDS: PANTOPRAZOLE 40 MG VIAL IV SCH ×2 (09:01→20:38)
[2021-12-26] MEDS: CHOLECALCIFEROL 5,000 UNIT TABLET PO SCH (09:01)
[2021-12-26] MEDS: DOCUSATE SODIUM 100 MG CAPSULE PO SCH ×2 (09:01→20:38)
[2021-12-26] MEDS: SODIUM HYPOCHLORITE 0.25% IRRIG 473 ML BOTTLE TOP SCH ×2 (09:03→20:38)
[2021-12-26] MEDS: MEROPENEM 500 MG in SODIUM CHLORIDE 0.9% 100 ML IV SCH (11:43)
[2021-12-26] MEDS ORDERED: VANCOMYCIN INJ 500 MG in SODIUM CHLORIDE 0.9% 100 ML IV ONE (17:00)
[2021-12-26] MEDS ORDERED: HEPARIN LOCK FLUSH 500 UNIT/5 ML SYRINGE IV PRN (20:32)
[2021-12-26] MEDS ORDERED: ALTEPLASE 2 MG VIAL INTRACATH ONE (21:30)
[2021-12-26] MEDS: ACETAMINOPHEN 325 MG TABLET PO PRN (22:20)
[2021-12-27 03:44] LABS: Basophils # 0.1 10*3/uL (0.0-0.2); Basophils % 0.4 % (0.0-0.8); Eosinophils # 0.1 10*3/uL (0.0-0.87); Eosinophils % 0.4 % (0.00-10.9); Hematocrit 31.6 VOL% (35.7-47.0); Hemoglobin 10.3 GM/DL (12.0-16.0); Immature Granulocytes % 9.4 %; Immature Granulocytes Absolute 2.13 #; Lymphocytes # 0.9 10*3/uL (1.4-4.0); Mean Corpuscular HGB Conc 32.6 GM/DL (32-36); Mean Corpuscular Volume 89.8 FL (87-102); Mean Platelet Volume 12.5 FL (9.6-12.0); Monocytes # 1.2 10*3/uL (0.11-0.8); Monocytes % 5.4 % (1.7-12.7); NRBC # 0.37 10*3/uL; Neutrophils % 80.4 % (38.7-73.9); Platelet Count 95 T/CUMM (130-400); Red Blood Count 3.52 MC/CUMM (3.8-5.5); White Blood Count 22.8 T/CUMM (4-12)
[2021-12-27 04:07] LABS: Calcium 8.8 MG/DL (8.5-10.1); Osmolality,Calculated 296.3 MOS/KG (273-304); Potassium 3.3 MMOL/L (3.5-5.1)
[2021-12-27 04:22] LABS: Anisocytosis 1+; Eosinophils 1 % (0-10); Hypochromia 1+; Lymphocytes 4 % (20-55); Metamyelocytes 1 %; Microcytosis 1+; Myelocytes 2 %; Nucleated Red Blood Cells 3 /100 WBC (0-5); Target Cells Slight; Total Cells Counted 100
[2021-12-27 04:23] LABS: Ovalocytes Slight; Polychromasia Slight
[2021-12-27 04:23] LABS: Arterial Base Excess iSTAT 3 MMOL/L (-2.5-2.5); Arterial Bicarbonate iSTAT 29.1 MMOL/L (20-26); Arterial O2 Saturation iSTAT 96 % (95-100); Arterial PCO2 iSTAT 51 MM HG (35-48); Arterial PO2 iSTAT 89 MM HG (80-95); Arterial Total CO2 iSTAT 31 MMO/L (23-27); Arterial pH iSTAT 7.368 (7.35-7.45)
[2021-12-27] MEDS: INSULIN LISPRO 100 UNIT/ML SUBCUT SCH ×3 (06:20→18:59)
[2021-12-27] MEDS: NOREPINEPHRINE 8 MG in SODIUM CHLORIDE 0.9% 242 ML IV PRN (07:47)
[2021-12-27] MEDS: PANTOPRAZOLE 40 MG VIAL IV SCH ×2 (10:06→22:03)
[2021-12-27] MEDS: DOCUSATE SODIUM 100 MG CAPSULE PO SCH ×2 (10:06→22:03)
[2021-12-27] MEDS: MULTIVITAMIN (BEROCCA) TABLET PO SCH (10:06)
[2021-12-27] MEDS: SODIUM HYPOCHLORITE 0.25% IRRIG 473 ML BOTTLE TOP SCH ×2 (10:06→22:03)
[2021-12-27] MEDS: SEVELAMER CARBONATE 800 MG TABLET PO SCH ×3 (10:06→18:59)
[2021-12-27] MEDS: HYDROCORTISONE 100 MG VIAL IV SCH ×2 (10:07→22:03)
[2021-12-27] MEDS: CHOLECALCIFEROL 5,000 UNIT TABLET PO SCH (10:07)
[2021-12-27] MEDS: MEROPENEM 500 MG in SODIUM CHLORIDE 0.9% 100 ML IV SCH (13:41)
[2021-12-28] MEDS: INSULIN LISPRO 100 UNIT/ML SUBCUT SCH ×5 (01:30→23:48)
[2021-12-28 03:47] LABS: Basophils # 0.1 10*3/uL (0.0-0.2); Basophils % 0.3 % (0.0-0.8); Eosinophils % 0.2 % (0.00-10.9); Hematocrit 30.2 VOL% (35.7-47.0); Hemoglobin 9.9 GM/DL (12.0-16.0); Immature Granulocytes % 6.6 %; Immature Granulocytes Absolute 1.45 #; Lymphocytes % 4.4 % (21.3-54.2); Mean Corpuscular HGB Conc 32.8 GM/DL (32-36); Mean Corpuscular Volume 89.9 FL (87-102); Mean Platelet Volume 11.6 FL (9.6-12.0); Monocytes % 4.4 % (1.7-12.7); NRBC # 0.14 10*3/uL; Neutrophils % 84.1 % (38.7-73.9); Platelet Count 104 T/CUMM (130-400); Red Blood Count 3.36 MC/CUMM (3.8-5.5); Red Cell Distribution Width 18.4 % (9.3-17.3); White Blood Count 21.8 T/CUMM (4-12)
[2021-12-28 03:55] LABS: Calcium 9.3 MG/DL (8.5-10.1); Osmolality,Calculated 298.3 MOS/KG (273-304); Potassium 3.6 MMOL/L (3.5-5.1)
[2021-12-28 04:09] LABS: Band Neutrophils 1 % (0-10); Lymphocytes 6 % (20-55); Platelet Estimate Decreased; Total Cells Counted 100
[2021-12-28 04:10] LABS: Hypochromia Slight; Macrocytosis Slight; Polychromasia Slight
[2021-12-28 04:20] LABS: Arterial Base Excess iSTAT 2 MMOL/L (-2.5-2.5); Arterial O2 Saturation iSTAT 98 % (95-100); Arterial PCO2 iSTAT 51 MM HG (35-48); Arterial PO2 iSTAT 107 MM HG (80-95); Arterial Total CO2 iSTAT 30 MMO/L (23-27); Arterial pH iSTAT 7.353 (7.35-7.45)
[2021-12-28] MEDS ORDERED: propofoL 200 MG/20 ML VIAL IV ONE (08:24)
[2021-12-28] MEDS ORDERED: KETAMINE 500 MG/10 ML VIAL ONE (08:24)
[2021-12-28] MEDS: SEVELAMER CARBONATE 800 MG TABLET PO SCH ×3 (08:39→18:04)
[2021-12-28] MEDS: CHOLECALCIFEROL 5,000 UNIT TABLET PO SCH (08:40)
[2021-12-28] MEDS: MULTIVITAMIN (BEROCCA) TABLET PO SCH (08:40)
[2021-12-28] MEDS: MIDODRINE 5 MG TABLET PO SCH ×3 (08:40→20:04)
[2021-12-28] MEDS: DOCUSATE SODIUM 100 MG CAPSULE PO SCH ×2 (08:40→20:04)
[2021-12-28] MEDS ORDERED: SODIUM CHLORIDE 0.9% 500 ML IV ONE (09:29)
[2021-12-28] MEDS: SODIUM HYPOCHLORITE 0.25% IRRIG 473 ML BOTTLE TOP SCH ×2 (10:08→20:04)
[2021-12-28 10:29] VITALS: BP 118/80
[2021-12-28] MEDS: HYDROCORTISONE 100 MG VIAL IV SCH ×2 (10:36→20:06)
[2021-12-28] MEDS: PANTOPRAZOLE 40 MG VIAL IV SCH ×2 (10:38→20:04)
[2021-12-28] MEDS: MEROPENEM 500 MG in SODIUM CHLORIDE 0.9% 100 ML IV SCH (11:24)
[2021-12-28] MEDS: NOREPINEPHRINE 8 MG in SODIUM CHLORIDE 0.9% 242 ML IV PRN (15:36)
[2021-12-29 03:23] LABS: Arterial Base Excess iSTAT 1 MMOL/L (-2.5-2.5); Arterial Bicarbonate iSTAT 26.3 MMOL/L (20-26); Arterial O2 Saturation iSTAT 97 % (95-100); Arterial PCO2 iSTAT 44 MM HG (35-48); Arterial PO2 iSTAT 96 MM HG (80-95); Arterial Total CO2 iSTAT 28 MMO/L (23-27); Arterial pH iSTAT 7.388 (7.35-7.45)
[2021-12-29 03:58] LABS: Basophils # 0.1 10*3/uL (0.0-0.2); Basophils % 0.2 % (0.0-0.8); Eosinophils # 0.1 10*3/uL (0.0-0.87); Eosinophils % 0.2 % (0.00-10.9); Hematocrit 30.9 VOL% (35.7-47.0); Immature Granulocytes Absolute 1.05 #; Lymphocytes # 1.1 10*3/uL (1.4-4.0); Lymphocytes % 4.2 % (21.3-54.2); Mean Corpuscular HGB Conc 32.4 GM/DL (32-36); Mean Corpuscular Volume 89.8 FL (87-102); Mean Platelet Volume 11.5 FL (9.6-12.0); Monocytes # 1.1 10*3/uL (0.11-0.8); Monocytes % 4.1 % (1.7-12.7); NRBC # 0.15 10*3/uL; Neutrophils % 87.3 % (38.7-73.9); Platelet Count 124 T/CUMM (130-400); Red Blood Count 3.44 MC/CUMM (3.8-5.5); Red Cell Distribution Width 18.8 % (9.3-17.3); White Blood Count 26.3 T/CUMM (4-12)
[2021-12-29 04:11] LABS: Calcium 9.3 MG/DL (8.5-10.1); Osmolality,Calculated 306.5 MOS/KG (273-304); Potassium 3.9 MMOL/L (3.5-5.1)
[2021-12-29 04:18] LABS: Hypochromia Slight; Lymphocytes 6 % (20-55); Nucleated Red Blood Cells 2 /100 WBC (0-5); Platelet Estimate Normal; Total Cells Counted 100
[2021-12-29 04:19] LABS: Macrocytosis Slight
[2021-12-29] MEDS: INSULIN LISPRO 100 UNIT/ML SUBCUT SCH ×4 (05:41→23:34)
[2021-12-29] MEDS ORDERED: VANCOMYCIN INJ 500 MG in SODIUM CHLORIDE 0.9% 100 ML IV PRN (07:30)
[2021-12-29] MEDS: PANTOPRAZOLE 40 MG VIAL IV SCH ×2 (08:31→20:09)
[2021-12-29] MEDS: INSULIN NPH/REGULAR 70/30 100 UNIT/ML SUBCUT SCH (08:31)
[2021-12-29] MEDS: HYDROCORTISONE 100 MG VIAL IV SCH ×2 (08:31→20:08)
[2021-12-29] MEDS: CHOLECALCIFEROL 5,000 UNIT TABLET PO SCH (08:31)
[2021-12-29] MEDS: DOCUSATE SODIUM 100 MG CAPSULE PO SCH ×2 (08:32→20:08)
[2021-12-29] MEDS: SODIUM HYPOCHLORITE 0.25% IRRIG 473 ML BOTTLE TOP SCH ×2 (08:32→20:08)
[2021-12-29] MEDS: MULTIVITAMIN (BEROCCA) TABLET PO SCH (08:32)
[2021-12-29] MEDS: MIDODRINE 5 MG TABLET PO SCH ×3 (08:32→20:08)
[2021-12-29] MEDS: SEVELAMER CARBONATE 800 MG TABLET PO SCH ×3 (08:32→17:03)
[2021-12-29] MEDS: ACETAMINOPHEN 325 MG TABLET PO PRN (09:27)
[2021-12-29] MEDS: MEROPENEM 500 MG in SODIUM CHLORIDE 0.9% 100 ML IV SCH (12:28)
[2021-12-29] MEDS ORDERED: INSULIN NPH/REGULAR 70/30 100 UNIT/ML SUBCUT SCH (16:30)
[2021-12-29] MEDS ORDERED: VANCOMYCIN INJ 500 MG in SODIUM CHLORIDE 0.9% 100 ML IV ONE (17:00)
[2021-12-29] MEDS: MORPHINE 2 MG/1 ML SYRINGE IV PRN (20:12)
[2021-12-30 03:46] LABS: Arterial Base Excess iSTAT 4 MMOL/L (-2.5-2.5); Arterial Bicarbonate iSTAT 28.8 MMOL/L (20-26); Arterial O2 Saturation iSTAT 92 % (95-100); Arterial PCO2 iSTAT 43 MM HG (35-48); Arterial PO2 iSTAT 63 MM HG (80-95); Arterial Total CO2 iSTAT 30 MMO/L (23-27); Arterial pH iSTAT 7.432 (7.35-7.45)
[2021-12-30 03:53] LABS: Basophils % 0.2 % (0.0-0.8); Eosinophils % 0.2 % (0.00-10.9); Hemoglobin 9.5 GM/DL (12.0-16.0); Immature Granulocytes % 2.6 %; Immature Granulocytes Absolute 0.57 #; Lymphocytes # 1.2 10*3/uL (1.4-4.0); Lymphocytes % 5.4 % (21.3-54.2); Mean Corpuscular HGB Conc 31.7 GM/DL (32-36); Mean Corpuscular Volume 91.2 FL (87-102); Mean Platelet Volume 11.6 FL (9.6-12.0); Monocytes # 1.4 10*3/uL (0.11-0.8); Monocytes % 6.5 % (1.7-12.7); NRBC # 0.08 10*3/uL; Neutrophils % 85.1 % (38.7-73.9); Platelet Count 117 T/CUMM (130-400); Red Blood Count 3.29 MC/CUMM (3.8-5.5); Red Cell Distribution Width 19.5 % (9.3-17.3); White Blood Count 21.8 T/CUMM (4-12)
[2021-12-30 04:06] LABS: Calcium 8.7 MG/DL (8.5-10.1); Osmolality,Calculated 295.4 MOS/KG (273-304)
[2021-12-30 04:11] LABS: Eosinophils 1 % (0-10); Lymphocytes 5 % (20-55); Nucleated Red Blood Cells 1 /100 WBC (0-5); Total Cells Counted 100
[2021-12-30 04:12] LABS: Anisocytosis 1+; Hypochromia 1+; Macrocytosis 1+; Polychromasia Slight; Target Cells Slight
[2021-12-30 04:13] LABS: Platelet Estimate Adequate
[2021-12-30] MEDS: INSULIN LISPRO 100 UNIT/ML SUBCUT SCH ×2 (05:58→12:45)
[2021-12-30] MEDS: INSULIN NPH/REGULAR 70/30 100 UNIT/ML SUBCUT SCH (10:02)
[2021-12-30] MEDS: SODIUM HYPOCHLORITE 0.25% IRRIG 473 ML BOTTLE TOP SCH (10:02)
[2021-12-30] MEDS: DOCUSATE SODIUM 100 MG CAPSULE PO SCH (10:02)
[2021-12-30] MEDS: SEVELAMER CARBONATE 800 MG TABLET PO SCH ×2 (10:02→12:45)
[2021-12-30] MEDS: MIDODRINE 5 MG TABLET PO SCH (10:02)
[2021-12-30] MEDS: MULTIVITAMIN (BEROCCA) TABLET PO SCH (10:02)
[2021-12-30] MEDS: PANTOPRAZOLE 40 MG VIAL IV SCH (10:02)
[2021-12-30] MEDS: CHOLECALCIFEROL 5,000 UNIT TABLET PO SCH (10:03)
[2021-12-30] MEDS: HYDROCORTISONE 100 MG VIAL IV SCH (10:03)
[2021-12-30] MEDS: MEROPENEM 500 MG in SODIUM CHLORIDE 0.9% 100 ML IV SCH (12:49)
[2021-12-30] MEDS: MORPHINE 2 MG/1 ML SYRINGE IV PRN (14:02)
[2021-12-30] MEDS ORDERED: VANCOMYCIN INJ 500 MG in SODIUM CHLORIDE 0.9% 100 ML IV ONE (17:00)
== END 2021-12-30 14:20 | DRG 853 ==
LOC: N.ED 11:34 → N.EDINP 14:31 → SUATTDRO 14:31 → N.3E 16:18 → N.CC 12-21 00:04
PROVIDERS: ADMIT Hospitalist; ATTEND Internal Medicine